=== PATIENT | female | born 1940 | race Caucasian/White ===

== ENCOUNTER → 2016-11-30 | Outpatient (CLI) | payer MEDICARE ==
[~2016-11-30] MED LIST: AMITRIPTYLINE H50 MG PO; ASPIRIN325 M2 PO; AUGMENTIN 875875 MG PO; BACTROBAN CREAM15 GM PO; BYETTA10 MCG/0.0 SC; CATAPRES0.3 MG PO; CITRACAL + D 311 TAB PO; CLARITIN10 MG PO; CLINDAMYCIN HC300 MG PO; CLONAZEPAM0.5 MG PO; CLONIDINE0.3 MG PO; COLACE100 MG PO; DIOVAN80 M1 PO; DUONEB 3 MG/3 ML3 M1 INH; GLUCOPHAGE500 MG PO; HYDROCODONE W/1 TA1 PO; IMDUR SA60 M1 PO; ISOSORBIDE MONO60 MG PO; ISOSORBIDE30 MG PO; JANUVIA100 MG PO; LABETALOL HCL300 MG PO; LASIX20 MG PO; LIPITOR20 MG PO; MEGACE 40400 MG/10 PO; METFORMIN1000 MG PO; METFORMIN500 MG PO; METOCLOPRAMIDE10 MG PO; METOPROLOL50 MG PO; MIRALAX POWDER17 G1 PO; MYCOLOG CREAM 115 GM PO; NITROGLYCERIN 0.3 MG/HR TD; NORVASC10 MG PO; NORVASC5 MG PO; ONDANSETRON4 M1 PO; PLAVIX75 MG PO; POTASSIUM CHLO10 ME4 PO; PRILOSEC20 M1 PO; PRILOSEC20 MG PO; PRINIVIL20 MG PO; PROTONIX40 MG PO; PULMICORT INH200 MCG INH; PULMICORT RESP0.5 MG INH; PULMICORT0.5 MG/2 M; RANEXA1000 MG PO; RANEXA500 MG PO; REGLAN10 MG PO; RESTORIL15 MG PO; RESTORIL30 MG PO; SYNTHROID,LEV100 MCG PO; VICOPROFEN 7.51 TA1 PO; VITAMIN B PO; VITAMIN B121000 MC2 IM; VITAMIN B121000 MC2 SL; XANAX0.25 MG PO; ZITHROMAX Z PA250 MG PO; ZOFRAN8 MG PO; ZOLOFT100 MG PO
== END | disposition home or self-care (01) ==
LOC: RAD 10:59
DX: M47.892 Other spondylosis, cervical region (principal); M54.9 Dorsalgia, unspecified

== ENCOUNTER → 2016-12-28 | Outpatient (CLI) | payer MEDICARE | END | disposition home or self-care (01) | LOC: RAD 11:09 | DX: M47.892 Other spondylosis, cervical region (principal) ==

== ENCOUNTER 2017-01-30 15:24 | Inpatient (IN) | payer MEDICARE ==
[~2017-01-30] VITALS: Ht 157.4 cm; Wt 70.4 kg
[2017-01-30 15:32] VITALS: BP 135/53
[2017-01-30 16:12] LABS: BASO % 0.5 % (0.0-1.0); EOS # 0.1 10*3/uL (0.0-0.4); EOS % 1.9 % (1.0-4.0); HEMATOCRIT 30.8 % (37.0-47.0); HEMOGLOBIN 9.6 g/dl (12.0-16.0); LYMPH # 1.4 10*3/uL (1.3-4.4); LYMPH % 18.6 % (27.0-41.0); MEAN CELL VOLUME 81.3 fl (81.0-99.0); MEAN CORPUSCULAR HGB 25.3 pg (27.0-31.0); MEAN CORPUSCULAR HGB CONC 31.2 g/dl (33.0-37.0); MEAN PLATELET VOLUME 10.3 fl (9.6-12.3); MONO # 0.8 10*3/uL (0.1-1.0); MONO % 11.2 % (3.0-9.0); NEUT % 67.5 % (47.0-73.0); PLATELET COUNT AUTOMATED 292 10*3/uL (130-400); RED BLOOD COUNT 3.79 10*6/uL (4.10-5.10); RED CELL DISTRI WIDTH 16.2 % (0-14.5); WHITE BLOOD COUNT 7.4 10*3/uL (4.8-10.8)
[2017-01-30 16:20] LABS: PROTHROMBIN TIME 10.7 SECONDS (9.0-12.4)
[2017-01-30 16:30] LABS: ALBUMIN 3.1 gm/dl (3.1-4.5); ALKALINE PHOSPHATASE 50 U/L (45-117); BILIRUBIN, TOTAL 0.4 mg/dl (0.2-1.0); BUN 28 mg/dl (7-24); C-REACTIVE PROTEIN 2.05 MG/DL (0-0.3); CARBON DIOXIDE 26 mmol/L (21-32); CHLORIDE 107 mmol/L (98-107); CKMB 1.5 ng/ml (0.5-3.6); CPK 77 U/L (26-192); EST GLOM FILT AFRICAN AMERICAN 47 ml/min; GLUCOSE 152 mg/dL (65-99); MAGNESIUM 1.1 mg/dL (1.5-2.1); POTASSIUM 3.7 mmol/L (3.5-5.1); SGOT/AST 13 IU/L (3-35); SGPT/ALT 15 U/L (12-78); SODIUM 144 mmol/L (136-145); TOTAL PROTEIN 6.5 gm/dL (6.4-8.2)
[2017-01-30 16:31] LABS: TROPONIN I < 0.015 ng/ml (<0.045)
[2017-01-30 16:36] LABS: BILIRUBIN NEGATIVE (NEGATIVE); BLOOD TRACE-INTACT (NEGATIVE); CLARITY SL CLOUDY (CLEAR); COLOR YELLOW (YELLOW); GLUCOSE NEGATIVE (NEGATIVE); KETONE TRACE (NEGATIVE); LEUKO ESTERASE 1+ (NEGATIVE); NITRITE NEGATIVE (NEGATIVE); PH 5.5 (5.0-9.0); PROTEIN TRACE (NEGATIVE); SPECIFIC GRAVITY 1.025 (1.005-1.030); UROBILINOGEN 0.2 E.U./dl (0.2-1.0)
[2017-01-30 16:48] LABS: WBC 21-30 wbc/hpf (0-5)
[2017-01-30 16:49] LABS: BACTERIA 1+; URINE REFLEX COMMENT YES (NO)
[2017-01-30 18:09] LABS: LA>2 REFLEX 2 HR DRAW NOW
[2017-01-30 18:54] VITALS: BP 191/63
[2017-01-30] MEDS ORDERED: HYDROCHLOROTH12.5 M2 PO (18:54)
[2017-01-30] MEDS ORDERED: PRILOSEC20 M1 PO (18:55)
[2017-01-30 20:00] VITALS: BP 144/60
[2017-01-31] VITALS (7 sets, daily range): BP systolic 142–217; BP diastolic 53–74
[2017-01-31 06:15] LABS: BASO % 0.5 % (0.0-1.0); EOS # 0.1 10*3/uL (0.0-0.4); EOS % 1.7 % (1.0-4.0); HEMATOCRIT 29.9 % (37.0-47.0); HEMOGLOBIN 9.5 g/dl (12.0-16.0); LYMPH % 12.9 % (27.0-41.0); MEAN CELL VOLUME 79.9 fl (81.0-99.0); MEAN CORPUSCULAR HGB 25.4 pg (27.0-31.0); MEAN CORPUSCULAR HGB CONC 31.8 g/dl (33.0-37.0); MEAN PLATELET VOLUME 9.8 fl (9.6-12.3); MONO # 0.9 10*3/uL (0.1-1.0); MONO % 10.9 % (3.0-9.0); NEUT # 5.8 10*3/uL (2.3-7.9); NEUT % 73.6 % (47.0-73.0); PLATELET COUNT AUTOMATED 281 10*3/uL (130-400); RED BLOOD COUNT 3.74 10*6/uL (4.10-5.10); RED CELL DISTRI WIDTH 16.1 % (0-14.5); WHITE BLOOD COUNT 7.8 10*3/uL (4.8-10.8)
[2017-01-31 06:42] LABS: BUN 20 mg/dl (7-24); CARBON DIOXIDE 28 mmol/L (21-32); CHLORIDE 105 mmol/L (98-107); EST GLOM FILT AFRICAN AMERICAN > 60 ml/min; GLUCOSE 148 mg/dL (65-99); POTASSIUM 3.4 mmol/L (3.5-5.1); SODIUM 141 mmol/L (136-145)
[2017-02-01 08:00] VITALS: BP 190/62
[2017-02-01 12:00] VITALS: BP 138/52
[2017-02-01 16:00] VITALS: BP 163/53
[2017-02-01 20:00] VITALS: BP 176/70
[2017-02-02] VITALS: BP 172/60
[2017-02-02] MEDS ORDERED: CIPRO500 MG PO (06:42)
[2017-02-02] MEDS ORDERED: MAGNESIUM OXID400 MG PO (06:42)
[2017-02-02 07:29] LABS: BASO % 0.7 % (0.0-1.0); EOS # 0.2 10*3/uL (0.0-0.4); EOS % 3.8 % (1.0-4.0); HEMATOCRIT 29.3 % (37.0-47.0); HEMOGLOBIN 9.1 g/dl (12.0-16.0); LYMPH # 1.4 10*3/uL (1.3-4.4); LYMPH % 23.3 % (27.0-41.0); MEAN CELL VOLUME 80.7 fl (81.0-99.0); MEAN CORPUSCULAR HGB 25.1 pg (27.0-31.0); MEAN CORPUSCULAR HGB CONC 31.1 g/dl (33.0-37.0); MEAN PLATELET VOLUME 10.3 fl (9.6-12.3); MONO # 0.9 10*3/uL (0.1-1.0); MONO % 14.9 % (3.0-9.0); NEUT # 3.3 10*3/uL (2.3-7.9); NEUT % 56.8 % (47.0-73.0); PLATELET COUNT AUTOMATED 278 10*3/uL (130-400); RED BLOOD COUNT 3.63 10*6/uL (4.10-5.10); RED CELL DISTRI WIDTH 16.1 % (0-14.5); WHITE BLOOD COUNT 5.8 10*3/uL (4.8-10.8)
[2017-02-02 07:39] LABS: BUN 15 mg/dl (7-24); CARBON DIOXIDE 25 mmol/L (21-32); CHLORIDE 109 mmol/L (98-107); EST GLOM FILT AFRICAN AMERICAN > 60 ml/min; GLUCOSE 141 mg/dL (65-99); POTASSIUM 3.3 mmol/L (3.5-5.1); SODIUM 142 mmol/L (136-145)
== END 2017-02-02 10:19 | disposition home health service (06) | DRG 689 ==
LOC: ED 15:24 → EDHOLD 17:41 → 4E 17:41
PROVIDERS: Emergency Medicine; Internal Medicine
DX: N39.0 Urinary tract infection, site not specified (principal); N17.0 Acute kidney failure with tubular necrosis; R62.7 Adult failure to thrive; R55 Syncope and collapse; Z88.1 Allergy status to other antibiotic agents; Z88.8 Allergy status to other drugs, medicaments and biological substances; R31.9 Hematuria, unspecified; I10 Essential (primary) hypertension; R29.6 Repeated falls; B96.4 Proteus (mirabilis) (morganii) as the cause of diseases classified elsewhere; Z66 Do not resuscitate; E83.42 Hypomagnesemia

== ENCOUNTER 2017-04-23 06:16 | Inpatient (IN) | payer MEDICARE ==
[~2017-04-23] VITALS: Ht 157.4 cm; Wt 67.2 kg
[2017-04-23] VITALS (9 sets, daily range): BP systolic 140–224; BP diastolic 55–156
--- NOTE | ~2017-04-23 | DS ---
[place], [place] DISCHARGE SUMMARY NAME: NINA FOFANA [facility] #: [id number] UNIT #: [id number] ROOM: 532 DOCTOR: AILYN DOMÍNGUEZ MD BIRTHDATE: [birth year] DOS: 04/25/2017 HOSPITAL COURSE: The patient is 77-year-old. The patient is very well known to us, comes in after a fall at home and developed back pain. Please refer H and P for further details. After admission, she was placed on IV fluids for acute kidney injury. This was most likely medication related, metformin and Vicoprofen were discontinued. The patient was started on Hematite for pain control. An MRI of the lumbar and thoracic spine was ordered, I do not have the result of that in dictation. The patient was given IV antibiotics. Urine culture showed heavy Gram-negative bacteria, no complete identification is available. The patient's back pain is much better with the appropriate pain medications. Blood pressure is under well controlled. Also, the hydrochlorothiazide and potassium has been discontinued as well as the metformin and Vicoprofen were discontinued because of the kidney failure. The patient has agreed to go to rehab center at this time. Social service and PT/OT has been consulted and the plan is to discharge her to rehab tomorrow morning. DISCHARGE MEDICATIONS: Will be Ceftin 250 twice daily for 5 days, Hematite t.i.d., Plavix 75 daily, lisinopril 20 daily, levothyroxine 100 mcg daily, aspirin 325 daily, Prilosec 20 daily, Lyrica 100 b.i.d., meclizine 25 three times a day p.r.n. for dizziness, labetalol 200 b.i.d. The stopped medications are potassium, Vicoprofen, metformin and hydrochlorothiazide. Blood sugars to be checked twice daily and coverage scale will be started and please place the patient on Prandin 1 mg t.i.d. for diabetic controlled. AILYN DOMÍNGUEZ MD CM:DISCHARG [phone] AILYN DOMÍNGUEZ MD 04/25/17 1139 interface
--- NOTE | ~2017-04-23 | PR ---
[place], [place] PROGRESS NOTE NAME: NINA FOFANA UNIT #: [id number] ROOM: 532 DOCTOR: AILYN DOMÍNGUEZ MD BIRTHDATE: [birth year] DOS: 04/24/2017 SUBJECTIVE: The patient complains of a lot of back pain. She seems quite uncomfortable in bed and seems to try to get up, sit in the chair and then go back to sleep. OBJECTIVE: VITAL SIGNS: Graphic trend shows pressure 139/51, pulse of 75, respirations 18, temperature 97.5. LUNGS: Clear. HEART: Regular. ABDOMEN: Obese, soft. EXTREMITIES: Without any edema. BACK: There is no clearcut point tenderness on her back; however, lumbar and thoracic spine is tender all over. There are no x-rays available. LABORATORY DATA: White cell count is normal at 6.9, hemoglobin 8.9, hematocrit 27.9, platelets 230. BMP: Glucose 84, BUN 26, creatinine 1.02. Electrolytes were normal. Urine culture shows heavy gram-negative bacteria, no identification is available. ASSESSMENT AND PLAN: 1. Patient with fall with acute back pain, rule out compression fracture. MRI of the thoracic and lumbar spine will be ordered. 2. Urinary tract infection with positive urine culture. Levaquin has been added. 3. Benign hypertension, controlled, with hypertensive nephrosclerosis and elevated creatinine, kidney functions on admission GFR 32; it was 52 this morning after IV fluids were given. 4. Adult failure to thrive. PT/OT and social service consult for placement obtained. [place], [place] PROGRESS NOTE NAME: NINA FOFANA UNIT #: [id number] ROOM: 532 DOCTOR: AILYN DOMÍNGUEZ MD BIRTHDATE: [birth year] AILYN DOMÍNGUEZ MD CM:PNTRANS [phone] AILYN DOMÍNGUEZ MD 04/24/172358 interface
--- NOTE | ~2017-04-23 | WRIGHTHP ---
[place], [place] PATIENT HISTORY AND PHYSICAL EXAM NAME: NINA FOFANA [facility] #: [id number] UNIT #: [id number] ROOM: 532 DOCTOR: AILYN DOMÍNGUEZ MD BIRTHDATE: [birth year] DOS: 04/23/2017 HISTORY OF PRESENT ILLNESS: The patient is 77 years, known to me from previous admissions, was brought into the Emergency Room during the night after a fall at home. She developed severe back pain. She was given multiple meds in the ER to control her back pain, but that made quite somnolent and lethargic and so she was admitted to the hospital. At the time of examination, the day of admission, the patient again was slightly obtunded and lethargic. Speech seems slow, mentation is slow. She is not able to tell me exactly the story of events preceding her admission here. The patient states that she has been seen by her PCP multiple times for back pain and she is on multiple medications. She denies having any chest pains, palpitations, does not have any fever or chills, does not have any abdominal pain, nausea, any emesis. PAST MEDICAL HISTORY: Significant for last hospitalization in January 2015 with UTI and adult failure to thrive. At that time, she refused to go to a [facility] home and at that time she was also taken off her Coumadin because she was not considered a good candidate for any anticoagulation. Past medical history is significant also for frequent falls, benign hypertension, hypertensive nephrosclerosis, type 2 diabetes mellitus, chronic low back pain. MEDICATIONS: She is currently on metformin, hydrochlorothiazide, Plavix, Vicoprofen, labetalol, levothyroxine, lisinopril, meclizine, metformin, omeprazole, potassium and Lyrica. SOCIAL HISTORY: Nonsmoker, does not use any alcohol. PHYSICAL EXAMINATION: GENERAL: She is very slow in responding to questions. VITAL SIGNS: Blood pressure is 139/50, pulse of 75, respirations 18, temperature 97.5. LUNGS: Diminished breath sounds. No wheezes, rales or rhonchi heard. HEART: Regular. ABDOMEN: Obese, soft, nontender. EXTREMITIES: Without any edema. BACK: Some diffuse tenderness over the back. ASSESSMENT AND PLAN: 1. The patient complains of back pain. The patient is ordered pain medications. A PT/OT consultation, Social service for possible placement for short term rehabilitation. 2. Urinary tract infection. Urine culture has been sent. IV antibiotics started. 3. Acute kidney injury, possibly from poor p.o. intake as well as urinary tract infection. IV fluids have been given. Hold off on nephrotoxic medications. [place], [place] PATIENT HISTORY AND PHYSICAL EXAM NAME: NINA FOFANA UNIT #: [id number] ROOM: [facility] DOCTOR: AILYN DOMÍNGUEZ MD BIRTHDATE: [birth year] AILYN DOMÍNGUEZ MD CM:HISPHYS:PATIENT HISTORY AND PHYSICAL EXAMINATION 11 38 AILYN DOMÍNGUEZ MD 04/24/172237 interface
--- NOTE | ~2017-04-23 | PR ---
[place], [place] PROGRESS NOTE NAME: NINA FOFANA UNIT #: [id number] ROOM: 532 DOCTOR: AILYN DOMÍNGUEZ MD BIRTHDATE: [birth year] DOS: SUBJECTIVE: The patient states that her pain is much under control. She does not have any chest pains or palpitations. OBJECTIVE: VITAL SIGNS: Blood pressure is 153/60, pulse of 57, respirations 18, temperature 97.5. LUNGS: Diminished breath sounds, clear. HEART: Regular. ABDOMEN: Obese, soft. EXTREMITIES: Without any edema. LABORATORY DATA: Urine culture shows ____ gram-negative bacteria. No identification is available yet. No labs available this morning. ASSESSMENT AND PLAN: 1. Fall with acute back pain. The patient is on [place] now and the pain is under control. 2. Adult failure to thrive. The patient to go to rehab center. 3. Urinary tract infection with gram-negative. No identification is available yet. Continue IV Rocephin. 4. Acute kidney injury, possibly from medications. Nephrotoxic meds have been discontinued. Slow IV hydration was given. Awaiting an MRI today. Should be able to discontinue IV fluids and discharge her to retirement in the morning as she has agreed to go to rehab. AILYN DOMÍNGUEZ MD CM:PNTRANS [phone] AILYN DOMÍNGUEZ MD 04/25/17 1216 interface
[~2017-04-23 06:16] MED LIST changes: +CIPRO500 MG PO; +HYDROCHLOROTH12.5 M2 PO; +MAGNESIUM OXID400 MG PO
[2017-04-23 06:44] LABS: BASO # 0.1 10*3/uL (0.0-0.1); BASO % 0.8 % (0.0-1.0); EOS # 0.2 10*3/uL (0.0-0.4); HEMATOCRIT 33.8 % (37.0-47.0); HEMOGLOBIN 10.6 g/dl (12.0-16.0); LYMPH # 1.8 10*3/uL (1.3-4.4); LYMPH % 23.9 % (27.0-41.0); MEAN CELL VOLUME 80.3 fl (81.0-99.0); MEAN CORPUSCULAR HGB 25.2 pg (27.0-31.0); MEAN CORPUSCULAR HGB CONC 31.4 g/dl (33.0-37.0); MEAN PLATELET VOLUME 9.7 fl (9.6-12.3); MONO # 0.8 10*3/uL (0.1-1.0); MONO % 10.4 % (3.0-9.0); NEUT # 4.8 10*3/uL (2.3-7.9); NEUT % 61.5 % (47.0-73.0); PLATELET COUNT AUTOMATED 334 10*3/uL (130-400); RED BLOOD COUNT 4.21 10*6/uL (4.10-5.10); RED CELL DISTRI WIDTH 15.9 % (0-14.5); WHITE BLOOD COUNT 7.7 10*3/uL (4.8-10.8)
[2017-04-23 06:55] LABS: ACT PARTIAL THROMBO TIME 22.4 SECONDS (20.8-31.5)
[2017-04-23 06:59] LABS: ALBUMIN 3.5 gm/dl (3.1-4.5); CREATININE 1.58 mg/dL (0.55-1.02); MAGNESIUM 1.4 mg/dL (1.5-2.1); POTASSIUM 3.6 mmol/L (3.5-5.1); TOTAL PROTEIN 7.1 gm/dL (6.4-8.2); TROPONIN I 0.034 ng/ml (<0.045)
--- NOTE | 2017-04-23 07:03 | NUR ---
2.5 MG OF LOPRESSOR GIVEN PER DR. MARTEL ORDER. 15 MINS LATER REMAINING 2.5 MG TO BE GIVEN. ONCOMING RN MADE AWARE OF THIS. PT HAS HAD SOME RELIEF FROM BACK PAIN. PT STILL HYPERTENSIVE.
--- NOTE | 2017-04-23 07:05 | NUR ---
RECEIVED PATIENT REPORT FROM TORIN. PATIENT CURRENTLY LAYING IN BED AT THIS TIME. PATIENT READJUSTED IN THE BED AT THIS TIME. PATIENT RESTING PEACEFULLY. APPEARS IN NO DISTRESS. WILL CONTINUE TO MONITOR.
--- NOTE | 2017-04-23 07:05 | NUR ---
PATIENT HAS 22G IV ACCESS NOTED IN THE LEFT HAND AT THIS TIME BY THIS NURSE. IV START HAS BEEN DOCUMENTED BY THIS NURSE. NURSE UNKNOWN FOR IV START AT THIS TIME.
--- NOTE | 2017-04-23 07:15 | NUR ---
DR MACDONALD NOTIFIED OF PATIENTS BLOOD PRESSURE MANUALLY 152/78. DR MACDONALD STATES TO STILL GIVE REMAINING 2.5MG OF LORPESSOR AT THIS TIME.
--- NOTE | 2017-04-23 08:30 | NUR ---
REPORT GIVEN TO TONY ADORNO ON 5TH FLOOR AT THIS TIME. PATIENT TRANSPORTED BY THIS NURSE TO 5TH FLOOR.
--- NOTE | 2017-04-23 08:40 | NUR ---
UPON ENTERING PATIENT ROOM FOR TRANSPORT TO THE 5TH FLOOR. PATIENT VERBALIZES TO THIS NURSE THAT SHE THINKS SHE IS SLURRING HER SPEECH. THIS NURSE NOTES A DECREASE IN SPEECH AT THIS TIME. DR MACDONALD NOTIFIED. TONY ADORNO ON 5TH FLOOR NOTIFIED WELL.
--- NOTE | 2017-04-23 08:55 | NUR ---
Time: 854 A 77 year old FEMALE admitted to 5E under services of AILYN RAMÍREZ MD. Pt. arrived via stretcher from ER. Chief complaint: INTRACTABLE BACK PAIN UNABLE TO AMBULATE. TONY CAT
[2017-04-23] MEDS ORDERED: LYRICA100 M1 PO (10:10)
[2017-04-23] MEDS ORDERED: MEDI-MECLIZINE25 MG PO (10:11)
[2017-04-23] MEDS ORDERED: LABETALOL HCL200 MG PO (10:12)
[2017-04-23 10:14] LABS: BILIRUBIN NEGATIVE (NEGATIVE); BLOOD TRACE-LYSED (NEGATIVE); CLARITY SL CLOUDY (CLEAR); COLOR YELLOW (YELLOW); GLUCOSE NEGATIVE (NEGATIVE); KETONE NEGATIVE (NEGATIVE); LEUKO ESTERASE 1+ (NEGATIVE); NITRITE NEGATIVE (NEGATIVE); PH 5.5 (5.0-9.0); UROBILINOGEN 0.2 E.U./dl (0.2-1.0)
--- NOTE | 2017-04-23 10:18 | NUR ---
DR DOMÍNGUEZ AWARE OF MED CHANGES IN MED REC BUT ADVISED TO LEAVE HER ORDERS ALONE SINCE PATIENTS BP IS TOO HIGH
--- NOTE | 2017-04-23 10:24 | NUR ---
DIDN'T GIVEN ASPIRIN 325. ALREADY GIVEN IN ER THIS MORNING
[2017-04-23 10:28] LABS: BACTERIA 3+; WBC TNTC wbc/hpf (0-5)
--- NOTE | 2017-04-23 21:05 | NUR ---
PT REQUESTED PAIN MEDCATION. PT RATED PAIN 8 OUT OF 10. PER PT, PAIN IS LOCATED IN THE UPPER BACK AREA BETWEEN THE SHOULDER BLADES AND DESCRIBES THE PAIN SHARP AND INTERMITTENT. NORCO WAS GIVEN.
--- NOTE | 2017-04-23 22:00 | NUR ---
NORCO WAS EFFECTIVE FOR PAIN. PT RATES PAIN AT 0 OUT OF 10.
[2017-04-24] VITALS: BP 138/50
[2017-04-24 06:15] LABS: BASO % 0.6 % (0.0-1.0); EOS # 0.2 10*3/uL (0.0-0.4); EOS % 2.8 % (1.0-4.0); HEMATOCRIT 27.9 % (37.0-47.0); HEMOGLOBIN 8.9 g/dl (12.0-16.0); LYMPH # 1.5 10*3/uL (1.3-4.4); LYMPH % 21.8 % (27.0-41.0); MEAN CELL VOLUME 81.1 fl (81.0-99.0); MEAN CORPUSCULAR HGB 25.9 pg (27.0-31.0); MEAN CORPUSCULAR HGB CONC 31.9 g/dl (33.0-37.0); MEAN PLATELET VOLUME 10.2 fl (9.6-12.3); MONO # 0.8 10*3/uL (0.1-1.0); MONO % 10.9 % (3.0-9.0); NEUT # 4.4 10*3/uL (2.3-7.9); NEUT % 63.5 % (47.0-73.0); PLATELET COUNT AUTOMATED 230 10*3/uL (130-400); RED BLOOD COUNT 3.44 10*6/uL (4.10-5.10); RED CELL DISTRI WIDTH 15.9 % (0-14.5); WHITE BLOOD COUNT 6.9 10*3/uL (4.8-10.8)
[2017-04-24 07:02] LABS: BUN 26 mg/dl (7-24); CHLORIDE 111 mmol/L (98-107); CREATININE 1.02 mg/dL (0.55-1.02); POTASSIUM 3.8 mmol/L (3.5-5.1); SODIUM 143 mmol/L (136-145)
--- NOTE | 2017-04-24 07:57 | NUR ---
Patient has [facility] and if discharged to home will need a resume home health order prior to discharge.
[2017-04-24 08:00] VITALS: BP 138/52
--- NOTE | 2017-04-24 08:30 | NUR ---
Railroad Cook in to talk to patient. Patient states lives at HOME with NOONE. There are [address] in the home. Physician: DR MCLAUGHLIN Pharmacy: [facility] Home health services: [facility] NURSE Patient's level of ADLs: MINIMAL ASSIST Patient has working utilities: YES DME: [facility] Follow-up physician's appointment after d/c: PREFERS TO MAKE HER OWN APPT Does patient want to access PORTAL?: Discharge plan . [facility] SNF STAY DISCUSSED. AGREES TO REFERRAL TO [facility]-NOT REHAB SUITES- SHE HAS BEEN TO [facility] IN THE PAST. WILL NEED 3 NIGHT STAY.
--- NOTE | 2017-04-24 13:12 | NUR ---
Patient referred to [facility], will require three night stay if accepted.
[2017-04-24 16:00] VITALS: BP 139/51
--- NOTE | 2017-04-24 16:12 | NUR ---
PHYSICAL THERAPY Physical Therapy Evaluation completed this date. See eval document for complete details. Will begin PT intervention to address the impairments of muscle weakness, decreased functional mobility I, and difficulty ambulating. Recommend SNF on d/c[place] [address] based on chart review and PT eval. Rosy Dwyer, PT
--- NOTE | 2017-04-24 17:51 | NUR ---
PT REQUESTED AND WAS MEDICATED WITH VICODIN FOR C/O BACK PAIN.
--- NOTE | 2017-04-24 20:00 | NUR ---
PT AWAKE IN BED, WATCHING TV. LUNGS DIMINISHED NO WHEEZES OR RHONCHI NOTED. EDEMA OF BILAT FEET NOTED. NO PAIN AT PRESENT TIME.
[2017-04-24 20:15] VITALS: BP 124/54
[2017-04-25] VITALS: BP 127/38
[2017-04-25 04:00] VITALS: BP 112/51
[2017-04-25 08:00] VITALS: BP 153/60
--- NOTE | 2017-04-25 08:18 | NUR ---
Patient referred to [facility], waiting on acceptance
--- NOTE | 2017-04-25 08:49 | NUR ---
PT DOWN FOR MRI AT THIS TIME.
[2017-04-25] MEDS ORDERED: NORCO 5-325 TA1 EACH PO (08:51)
[2017-04-25] MEDS ORDERED: CEFUROXIME AXE250 MG PO (08:51)
[2017-04-25] MEDS ORDERED: PRANDIN1 MG PO (08:54)
--- NOTE | 2017-04-25 10:29 | NUR ---
PHYSICAL THERAPY Patient just returned from having an MRI. Patient says she is too tired at this time for therapy. She wants therapy to come back this PM. CHRISTY RAHMAN PTA
--- NOTE | 2017-04-25 10:30 | NUR ---
PT BACK FROM MRI AT THIS TIME.
--- NOTE | 2017-04-25 10:48 | NUR ---
MEDICATED WITH NORCO PER PRN ORDER FOR C/O 10/29 BACK PAIN. WILL MONITOR FOR EFFECTIVENESS.
--- NOTE | 2017-04-25 11:14 | NUR ---
Faxed PT eval and updated notes to [facility]. Waiting on acceptance.
--- NOTE | 2017-04-25 12:15 | NUR ---
PT RESTING IN BED MORE COMFORTABLE. NORCO EFFECTIVE. CALL LIGHT WITHIN REACH. IVF INFUSING PER ORDER.
--- NOTE | 2017-04-25 12:56 | NUR ---
PHYSICAL THERAPY Patient wants therapy to come back in the afternoon. Will check back after lunch. 10:28 AM Jesus Velasquez PTA 12:57 PM ----- Checked back with patient and patient was eating lunch. Will check back later. Jesus Velasquez BRANCH SERVICE ASSOCIATE
--- NOTE | 2017-04-25 13:04 | NUR ---
Hospital exemption completed online in [facility] system. Still waiting on acceptance from [facility]
--- NOTE | 2017-04-25 13:30 | NUR ---
Patient has been accepted to [facility] and can go on Saturday04/26/17
--- NOTE | 2017-04-25 13:37 | NUR ---
PHYSICAL THERAPY Patient presented to therapy in supine with report of being medicated and having no LBP. Patient agrees to therapy. Patient performed supine to sitting at EOB and sit to stand transfer with Supervision. Patient performed gait with W/W 50' x 1 with CGA X 1. Patient transferred back to supine in bed with Supervision. Patient was left in supine with call light within reach. Patient was 1:1 with this INBOUND SALES CONSULTANT for 20 minutes total. Jessu Velasquez INBOUND SALES CONSULTANT
[2017-04-25 16:00] VITALS: BP 134/62
[2017-04-25 20:00] VITALS: BP 144/46; BP 144/52
--- NOTE | 2017-04-25 20:30 | NUR ---
RESTING IN BED WITH NO ACUTE DISTRESS NOTED. RESPIRATIONS EASY. LUNGS DIMINISHED, CLEAR. PULSE OX 98% RA. K-PAD IN USE TO BACK. OFFERED AND EDUCATED REGARDING TEDS, DECLINED STATING "I HATE THEM THINGS." IV FLUIDS INFUSING PER ORDER. CALL LIGHT WITHIN REACH
--- NOTE | 2017-04-25 21:01 | NUR ---
REQUESTED AND RECEIVED NORCO PER PRN ORDER FOR COMPLAINTS OF BACK PAIN RATING AN 8. CALL LIGHT WITHIN REACH. WILL MONITOR FOR EFFECTIVENESS
--- NOTE | 2017-04-25 23:00 | NUR ---
EARLIER MEDS APPEAR EFFECTIVE. RESTING WITH EYES CLOSED. RESPIRATIONS EASY. IV FLUIDS MAINTAINED.
[2017-04-26] VITALS: BP 142/45
--- NOTE | 2017-04-26 | NUR ---
SLEEPING. NO DISTRESS NOTED. RESPIRATIONS EASY. VSS. IV FLUIDS MAINTAINED PER ORDER. CALL LIGHT WITHIN REACH. BED ALARM MAINTAINED FOR SAFETY
--- NOTE | 2017-04-26 06:00 | NUR ---
slept throughout night with no distress noted. respirations easy. iv fluids maintained. call light within reach. bed alarm maintained for safety
--- NOTE | 2017-04-26 06:25 | NUR ---
requested and received norco per prn order for complaints of back pain rating a 6. call light within reach. will monitor for effectiveness
[2017-04-26 08:00] VITALS: BP 150/68
--- NOTE | 2017-04-26 09:00 | NUR ---
PT RESTING IN BED, NO DISTRESS NOTED. PT STATING SHE DOESN'T KNOW WHY SHE HAS TO GO THE SNF. EXPLAINED TO PT THAT IT'S NOT SAFE FOR HER TO GO HOME, THAT SHE HAS BEEN FALLING FREQUENTLY, PT AGREED. PT DENIES ANY COMPLAINTS AT THIS TIME.
--- NOTE | 2017-04-26 12:04 | NUR ---
PHYSICAL THERAPY Kristi seen this AM X 2, first time in she said no jame going home, going to be D/C. I stopped back again and Kritsi needing to use the bathroom. All transfers were CGA X 1, up on wheeled walker and Pt had IV Pole. Gait 17' into Pt's bathroom with W/W and MIN ASSISTANT BRANCH MANAGER X 1, little cueing for safety. Followed by gait back to bed no LOB, Pt with call light and phone and said that she is going home. COLIN RICHARDSON HOUSE BUILDER.
--- NOTE | 2017-04-26 13:44 | NUR ---
NURSE TO NURSE REPORT GIVEN TO NIKOLAY AT [facility].
--- NOTE | 2017-04-26 13:47 | NUR ---
Discharge instructions reviewed with patient/family. Patient receptive and verbalizes understanding. Follow-up care arranged. Written instructions given to patient/family. Pt transported to lobby via wheelchair. NAVIN BRAVO
--- NOTE | 2017-04-26 15:22 | NUR ---
PHYSICAL THERAPY CO-SIGN I approve of the Phyical Therapy notes written above. EDMOND BEASLEY PT
[2017-04-26] MEDS ORDERED: CEFUROXIME AXE250 MG PO (22:55)
== END 2017-04-26 13:47 | disposition other institution (70) | DRG 683 ==
LOC: ED 06:16 → EDHOLD 08:04 → 5E 08:04
PROVIDERS: Emergency Medicine Emergency Medical Services; ADMIT Internal Medicine
DX: N17.9 Acute kidney failure, unspecified (principal); N39.0 Urinary tract infection, site not specified; E11.22 Type 2 diabetes mellitus with diabetic chronic kidney disease; G89.29 Other chronic pain; R62.7 Adult failure to thrive; R29.6 Repeated falls; I12.9 Hypertensive chronic kidney disease with stage 1 through stage 4 chronic kidney disease, or unspecified chronic kidney disease; N18.9 Chronic kidney disease, unspecified; B96.89 Other specified bacterial agents as the cause of diseases classified elsewhere; M54.5 Low back pain; E66.9 Obesity, unspecified; Z66 Do not resuscitate; W18.39XA Other fall on same level, initial encounter; Z51.5 Encounter for palliative care; Z68.27 Body mass index [BMI] 27.0-27.9, adult; Z87.440 Personal history of urinary (tract) infections; Z82.49 Family history of ischemic heart disease and other diseases of the circulatory system; Z80.8 Family history of malignant neoplasm of other organs or systems; Z98.41 Cataract extraction status, right eye; Z90.710 Acquired absence of both cervix and uterus; Z79.82 Long term (current) use of aspirin; Z79.899 Other long term (current) drug therapy; Z88.8 Allergy status to other drugs, medicaments and biological substances; Y93.89 Activity, other specified; Y92.89 Other specified places as the place of occurrence of the external cause; Y99.8 Other external cause status

== ENCOUNTER 2017-04-30 22:37 | Inpatient (IN) | payer MEDICARE ==
[~2017-04-30] VITALS: Ht 157.4 cm; Wt 72.7 kg
--- NOTE | ~2017-04-30 | PR ---
[place], [place] PROGRESS NOTE [id number] #: [id number] ROOM: 518 DOCTOR: TAMY MCLAUGHLIN MD BIRTHDATE: [birth year] DOS: SUBJECTIVE: The patient is feeling much better today, although she is not enjoying drinking the bowel prep. VITAL SIGNS: Blood pressure 129/47, heart rate 60 beats per minute, breathing 20 times per minute and temperature 98.6 degrees Fahrenheit. GENERAL APPEARANCE: The patient is alert and oriented x 3, in no visible distress. Obesity and generalized weakness. HEENT AND NECK: Exam within normal limits. CARDIOVASCULAR SYSTEM: Heart rate is regular in rate and rhythm. S1 and S2 normally audible. LUNGS: Clear to auscultation. ABDOMEN: Soft, nontender. No obvious organomegaly. Bowel sounds are present. EXTREMITIES: Without significant cyanosis or edema. IMPRESSION: 1. The patient with acute diastolic type congestive heart failure, improved with diuresis. The patient was given IV Lasix and is being followed by Cardiology. 2. The patient's recent GI bleed and Hemoccult stool positive along with anemia with a hemoglobin of 7.9, which continues to drop. The patient is going for endoscopy by Dr. Toth tomorrow and is undergoing bowel prep. 3. Benign essential hypertension with controlled blood pressures with treatment. 4. Exacerbation of chronic obstructive pulmonary disease, which is being treated with cefuroxime. 5. Hypothyroidism, treated with thyroid supplements. TAMY MCLAUGHLIN MD CM:PNTRANS [phone] TAMY MCLAUGHLIN MD 05/02/172158 interface
--- NOTE | ~2017-04-30 | WRIGHTHP ---
[place], [place] PATIENT HISTORY AND PHYSICAL EXAM NAME: NINA FOFANA [facility] #: [id number] UNIT #: [id number] ROOM: 518 DOCTOR: TAMY MCLAUGHLIN MD BIRTHDATE: [birth year] DOS: 05/01/2017 HISTORY OF PRESENT ILLNESS: The patient is a 77-year-old female with a past medical history of: 1. Obesity. 2. Recurrent falls and failure to thrive. 3. Benign essential hypertension. 4. Type 2 diabetes mellitus. 5. Chronic nausea and diabetic gastroparesis. 6. COPD. 7. LVH. 8. Diastolic type chronic CHF. 9. Chronic lower back pains. 10. Remote history of pyloric stenosis, status post ballooning procedure by Dr. Toth. The patient was sent over from care home with increasing shortness of breath for a couple of days. The patient was found to be in congestive heart failure in the ER with mild pulmonary vascular congestion and small bilateral effusions, proBNP of 4000, hemoglobin 8.9. The patient recommended for admission and further management. After admission, the patient is wearing oxygen and is feeling somewhat better. REVIEW OF SYSTEMS: CARDIOVASCULAR: No chest pain. No palpitations. GASTROINTESTINAL: No nausea, vomiting, diarrhea or constipation. LUNGS: Increasing shortness of breath. No wheezing. FAMILY HISTORY: Noncontributory. HOME MEDICATIONS: The patient takes aspirin. She was also on cefuroxime, Plavix, [place], labetalol, Synthroid, Prinivil, Lyrica, Prilosec. ALLERGIES: Known allergies to TYLENOL, TETRACYCLINE, LORATADINE. PHYSICAL EXAMINATION: GENERAL: The patient is alert and oriented x 3, moderately obese, in no visible distress, generalized weakness. HEENT AND NECK: Extraocular movements are intact. Sclerae are anicteric. Oral mucosa is moist and clean. No obvious facial weakness. Neck is supple without any lymphadenopathy. No thyromegaly. No JVD. No carotid arterial bruits. LUNGS: Decreased breath sounds, especially in the lower lungs. CARDIOVASCULAR SYSTEM: Heart rate is regular in rate and rhythm. S1 and S2 normally audible. No significant murmur or any other abnormal cardiac sounds. ABDOMEN: Soft, nontender. No obvious organomegaly. Bowel sounds are present. No obvious herniation. EXTREMITIES: Trace leg and pedal edema. Compression socks in place. CENTRAL NERVOUS SYSTEM: Alert and oriented x 3. Cranial nerves II-XII are intact. Speech is normal. The patient is able to move all extremities. Normal muscle strength. Deep tendon reflexes are equal on both sides. Plantars were [place], [place] PATIENT HISTORY AND PHYSICAL EXAM NAME: NINA FOFANA UNIT #: [id number] ROOM: 518 DOCTOR: TAMY MCLAUGHLIN MD BIRTHDATE: [birth year] downgoing. IMPRESSION: 1. The patient presenting with acute diastolic type congestive heart failure. Cardiology has been consulted and the patient is being diuresed with IV Lasix. The patient is starting to feel better. Her serum electrolytes will be monitored. 2. Hypothyroidism, for which I will continue her on thyroid supplements. 3. Recent gastrointestinal bleed. The patient is waiting for GI workup, so I will consult Dr. Toth. She was Hemoccult stools positive as well as anemia from blood loss. 4. Recent exacerbation of chronic obstructive pulmonary disease, being treated with cefuroxime, which is being continued. 5. Benign essential hypertension. Blood pressures are controlled with labetalol and lisinopril. TAMY MCLAUGHLIN MD CM:HISPHYS:PATIENT HISTORY AND PHYSICAL EXAMINATION 1111 [id number] TAMY MCLAUGHLIN MD 05/01/17 1303 interface
--- NOTE | ~2017-04-30 | PR ---
[place], [place] PROGRESS NOTE NAME: NINA FOFANA UNIT #: [id number] ROOM: 518 DOCTOR: LEANNA ACOSTA MD BIRTHDATE: [birth year] DOS: 05/03/2017 SUBJECTIVE: The patient has been breathing fine. She had no orthopnea or PND and when she walked, she realized her breathing had improved significantly. She has no swelling of the legs, has not had any palpitations, no cough. OBJECTIVE: GENERAL: She looks well, alert and oriented. She has oxygen on and is not tachypneic. VITAL SIGNS: Pulse is 66 and regular, blood pressure 167/76. Systolic blood pressure has been mildly elevated since admission. NECK: JVP is normal. AJR is negative. CARDIOVASCULAR: Auscultation revealed no murmurs or any other sounds. EXTREMITIES: There is no edema in the lower extremities. RESPIRATORY: Percussion ____ is normal. Auscultation reveals just a few bibasilar crackles. LABORATORY DATA: Chemistry profile is fine. Hemoglobin is 7.9 g/dL. IMPRESSION: 1. This patient has acute on chronic diastolic heart failure, which has come under good control now. 2. Severe anemia is probably contributing to cardiac decompensation to some extent. PLAN: She was not taking any furosemide at home and here IV 40 mg once a day has induced fair amount of diuresis with -3.5 liters fluid balance since admission. When she is discharged home, she should be on 40 mg of furosemide orally daily and some potassium supplement as well. I would like to see her in the office in the next 2 to 3 weeks. [place], [place] PROGRESS NOTE NAME: NINA FOFANA UNIT #: [id number] ROOM: 518 DOCTOR: LEANNA ACOSTA MD BIRTHDATE: [birth year] LEANNA ACOSTA MD CM:PNTRANS [phone] LEANNA ACOSTA MD 05/04/17 0615 interface
--- NOTE | ~2017-04-30 | O ---
[place], [place] OPERATIVE NOTE NAME: NINA FOFANA UNIT #: [id number] ROOM: 518 DOCTOR: SKYLAR LEON MD BIRTHDATE: [birth year] DOS: PROCEDURE #1 HISTORY OF PRESENT ILLNESS: The patient is a 77-year-old who presented with anemia. The patient has been on aspirin and Plavix. PAST MEDICAL HISTORY: Associated with COPD, congestive heart failure, history of hypertension, obesity, pyloric ring stenosis, diabetes mellitus. PAST SURGICAL HISTORY: Hysterectomy, cholecystectomy, triple bypass, CABG. SOCIAL HISTORY: Nonsmoker, nonalcohol consumer. FAMILY HISTORY: Noncontributory. ALLERGIES: TYLENOL, TETRACYCLINE AND LORATADINE. MEDICATIONS: List has been reviewed. She has been on aspirin and clopidogrel. On the other hand, she has been on omeprazole 20 mg daily. PROCEDURE: Today's procedure part of investigation is panendoscopy and colonoscopy. PREMEDICATION: Versed and Diprivan. SCOPE: Olympus forward-viewing gastroscope Q10 video. REPORT: After putting the patient in the left lateral position and after application of lubricant to the scope, the scope was introduced. Thereafter, under direct visualization, I advanced through the length of the esophagus without difficulty. Gastric pouch was entered. Large gastric erosions in the antrum of the stomach was identified, photographed, biopsy was obtained. Duodenal bulb, second and third part was within normal limit. The patient extubated, tolerated procedure well. IMPRESSION: Gastritis, gastric erosions, superficial ulceration. This could be aspirin-induced and bleeding could have been clopidogrel and aspirin in combination and as a result anemia. PLAN AND DISCUSSION: We will switch her from omeprazole to Protonix 40 mg daily. We will reassess when we will proceed with colonoscopy. PROCEDURE #2 HISTORY OF PRESENT ILLNESS: The patient has presented with chief complaint of anemia amongst her complaints. Her blood count has been followed up and latest hemoglobin has been 7.9 and hematocrit 25. PROCEDURE: Today's procedure part of investigation is colonoscopy. [place], [place] OPERATIVE NOTE NAME: NINA FOFANA UNIT #: [id number] ROOM: 518 DOCTOR: SKYLAR LEON MD BIRTHDATE: [birth year] PREMEDICATION: Versed and Diprivan. SCOPE: Olympus forward-viewing colonoscope 10L video. REPORT: After putting the patient in the left lateral position and after application of lubricant to the scope, the scope was introduced. Thereafter, under direct visualization, I advanced through the length of colon without difficulty, difficulty being tortuosity of the colon and laxity. Base of the cecum explored, appendiceal orifice identified, and ileocecal valve identified. Scope was gradually withdrawn from ascending, transverse, descending colon. The patient extubated, tolerated procedure well. IMPRESSION: Tortuous colon. Otherwise, no active source of bleeding. PLAN AND DISCUSSION: Retrospectively we have to consider upper GI tract as a source of GI bleed. The patient with a hematocrit of 25 with a history of cardiac stress requires another transfusion, regular diet, elevation, also have PPI to Protonix 40 mg daily, clinical reassessment. SKYLAR LEON MD CM:OPRECORD:OPERATIVE NOTE [id number] SKYLAR LEON MD 05/03/17 1419 interface
--- NOTE | ~2017-04-30 | PR ---
[place], [place] PROGRESS NOTE NAME: NINA FOFANA UNIT #: [id number] ROOM: 518 DOCTOR: AILYN DOMÍNGUEZ MD BIRTHDATE: [birth year] DOS: SUBJECTIVE: The patient is doing fine without any complaints. She is awaiting a colonoscopy today. OBJECTIVE: VITAL SIGNS: Graphic trend shows blood pressure 167/76, pulse of 67, respirations 18, temperature 97.8. LUNGS: Clear. HEART: Regular. ABDOMEN: Obese, soft, nontender. EXTREMITIES: Without any edema. ASSESSMENT AND PLAN: 1. Poorly controlled hypertension, improved. 2. Congestive heart failure, acute, diastolic. Repeat chest x-ray shows clearing of the fluid. 3. Heme-positive stools, awaiting GI workup. The plan is to [facility] her to a prison tomorrow. AILYN DOMÍNGUEZ MD CM:PNTRANS [id number] AILYN DOMÍNGUEZ MD 05/03/172131 interface
--- NOTE | ~2017-04-30 | CON ---
[place], [place] REPORT OF CONSULTATION NAME: NINA FOFANA UNIT #: [id number] ROOM: 518 DOCTOR: LEANNA ACOSTA MD BIRTHDATE: [birth year] DOS: 05/01/2017 HISTORY OF PRESENT ILLNESS: This is a 77-year-old -[place] woman with a history of coronary artery disease with 3-vessel CABG in 2008 and in 2011 she had a ____ heart cath, which demonstrated occluded vein graft to obtuse marginal branch and BERKOWITZ was patent that went to LAD and SVG to right coronary artery was also patent. LV systolic function was normal by LV gram and also by an echocardiogram done here. She has been diagnosed with diastolic heart failure previously and has type 2 diabetes mellitus, essential hypertension and chronic back pain. She had stated in a shelter where she was trying to recuperate and now had gone home. Yesterday off the supper time she became acutely short of breath, which was rather a bit of surprise for her. She had no cough, fever, chills, chest pain or palpitation at that time. She has not had any swelling of the lower extremities. She does not smoke nor does she drink alcoholic beverages. HOME MEDICATIONS: Include aspirin 325 daily, clopidogrel 75 mg daily, cefuroxime 250 mg b.i.d., levothyroxine 100 mcg daily, labetalol 200 mg b.i.d., lisinopril 20 mg daily, meclizine 25 mg t.i.d. p.r.n., omeprazole 20 mg daily and Lyrica 100 mg b.i.d. PHYSICAL EXAMINATION: GENERAL: The patient is pleasant, alert. She has oxygen on and is mildly tachypneic. No thyromegaly or finger clubbing is present. VITAL SIGNS: Pulses irregular at 66 beats per minute, blood pressure 139/48. NECK: JVP is normal. AJR appeared to be positive and there is no carotid bruit. HEART: There is no cardiomegaly. Murmurs were not present. There was no rub. EXTREMITIES: She had good pedal pulses and no pitting edema of the lower extremities. RESPIRATORY: She is mildly tachypneic. Percussion note is normal. Auscultation reveals mild reduced breath sounds with crackles in the lower zones. ABDOMEN: Supple, nontender, without any pulsatile mass, no bruit. LABORATORY DATA: An ECG showed normal sinus rhythm at 83 beats per minute, incomplete left bundle branch block, which she has had previously. Chest x-ray demonstrates small bilateral pleural effusions and mild pulmonary edema. LABORATORY DATA: Hemoglobin is 9.8 g per dL, MCV 82.6, glucose 252 mg/dL, BUN 27, creatinine 0.99 and estimated GFR of 54 mL per minute. Potassium 4.0, sodium 142 and NT-proBNP is 4137. Troponin less than is 0.041. IMPRESSION: This patient has mild heart failure predominantly manifesting as pulmonary edema, shortness of breath and diastolic heart failure is likely to be present. No underlying rhythm. Her blood pressure has not been high, so reason for acute exacerbation is not clear. Of course, underlying coronary artery disease may be playing a part as well. [place], [place] REPORT OF CONSULTATION NAME: NINA FOFANA UNIT #: [id number] ROOM: 518 DOCTOR: LEANNA ACOSTA MD BIRTHDATE: [birth year] RECOMMENDATIONS: You have already started on IV furosemide, which should be continued and she is diuresing very nicely with that. Other home medication should be continued as well. Potassium and renal function and magnesium should be monitored. LEANNA ACOSTA MD CM:CONSTR:REPORT OF CONSULTATION 1815 05/02/17 0253 interface
--- NOTE | ~2017-04-30 | DS ---
[place], [place] DISCHARGE SUMMARY NAME: [id number] UNIT #: [id number] ROOM: 518 DOCTOR: AILYN DOMÍNGUEZ MD BIRTHDATE: [birth year] DOS: 05/04/2017 DIAGNOSES: 1. Acute diastolic congestive heart failure. 2. Hypertension, poorly controlled. 3. Heme-positive stools with a GI workup showing gastric erosions, tortuous colon. 4. Adult failure to thrive. 5. Chronic back pain with lumbar disk disease and radiculopathy to see Dr. Charles as an outpatient. 6. Type 2 diabetes mellitus, non-insulin dependent. MEDICATIONS ON DISCHARGE: Protonix 40 mg daily, metformin 500 b.i.d., Lasix 40 daily, lisinopril 20 daily, levothyroxine 100 mcg daily, Lyrica 100 b.i.d., meclizine 25 t.i.d. p.r.n., labetalol 200 mg b.i.d., Plavix 75 daily, Granby 5/325 t.i.d. p.r.n. The aspirin is on hold. HOSPITAL COURSE: The patient is known to us. She was admitted to the hospital after being sent from the senior living with poorly controlled hypertension. The pressures were systolic in the 200s, diastolic about 120 at the time of admission to the ER. The patient was also in acute diastolic CHF from the poorly controlled hypertension. After admission, patient was diuresed, pressures are much better controlled. Heme-positive stool was noted as an outpatient, so GI workup was initiated. Dr. Toth was consulted. Gastric erosions were noted, most likely from the aspirin, which was discontinued. Colonoscopy just revealed tortuous colon. No other abnormalities were seen. The patient is overall stable and improved. Please check blood sugars daily. DIET: ADA 1800. AILYN DOMÍNGUEZ MD CM:DISCHJUAN DAVID [id number] AILYN DOMÍNGUEZ MD 05/04/17 1441 interface
--- NOTE | ~2017-04-30 | PR ---
[place], [place] PROGRESS NOTE NAME: [facility]FANA [id number] UNIT #: [id number] ROOM: 518 DOCTOR: AILYN DOMÍNGUEZ MD BIRTHDATE: [birth year] DOS: 05/04/2017 SUBJECTIVE: The patient is not having any new complaints. She underwent the endoscopy, colonoscopy. Colonoscopy showed tortuous colon. No abnormalities were seen. Endoscopy showed gastritis and gastric erosions. The patient is not having any complaints of chest pains or palpitations this morning. OBJECTIVE: VITAL SIGNS: Blood pressures are much better at 155/51, pulse of 70, respirations 20, temperature 98.3. LUNGS: Clear. HEART: Regular. ABDOMEN: Obese, soft, nontender. EXTREMITIES: Without any edema. ASSESSMENT AND PLAN: 1. Acute diastolic congestive heart failure, improved. 2. Hypertension, poorly controlled. Pressures are much better. 3. Heme positive stools with endoscopy showing gastric erosions, did receive 1 unit of blood transfusion yesterday for hemoglobin of 7.9. 4. Chronic obstructive pulmonary disease, stable. 5. Adult failure to thrive, to go to [facility] today. AILYN DOMÍNGUEZ MD CM:PNTRANS [id number] AILYN DOMÍNGUEZ MD 05/04/17 1623 interface
[~2017-04-30 22:37] MED LIST changes: +CEFUROXIME AXE250 MG PO; +LABETALOL HCL200 MG PO; +LYRICA100 M1 PO; +MEDI-MECLIZINE25 MG PO; +NORCO 5-325 TA1 EACH PO; +PRANDIN1 MG PO
[2017-04-30 22:53] VITALS: BP 172/88
[2017-04-30 23:02] LABS: BASO # 0.1 10*3/uL (0.0-0.1); BASO % 0.6 % (0.0-1.0); EOS # 0.3 10*3/uL (0.0-0.4); EOS % 2.6 % (1.0-4.0); HEMATOCRIT 28.5 % (37.0-47.0); HEMOGLOBIN 8.9 g/dl (12.0-16.0); LYMPH # 1.2 10*3/uL (1.3-4.4); LYMPH % 12.6 % (27.0-41.0); MEAN CELL VOLUME 82.6 fl (81.0-99.0); MEAN CORPUSCULAR HGB 25.8 pg (27.0-31.0); MEAN CORPUSCULAR HGB CONC 31.2 g/dl (33.0-37.0); MONO # 0.9 10*3/uL (0.1-1.0); MONO % 8.8 % (3.0-9.0); NEUT # 7.2 10*3/uL (2.3-7.9); PLATELET COUNT AUTOMATED 293 10*3/uL (130-400); RED BLOOD COUNT 3.45 10*6/uL (4.10-5.10); RED CELL DISTRI WIDTH 16.9 % (0-14.5); WHITE BLOOD COUNT 9.6 10*3/uL (4.8-10.8)
[2017-04-30 23:04] VITALS: BP 178/74
[2017-04-30 23:13] LABS: ACT PARTIAL THROMBO TIME 18.4 SECONDS (20.8-31.5)
[2017-04-30 23:18] LABS: BILIRUBIN NEGATIVE (NEGATIVE); BLOOD NEGATIVE (NEGATIVE); CLARITY CLEAR (CLEAR); COLOR YELLOW (YELLOW); GLUCOSE 1+ (NEGATIVE); KETONE NEGATIVE (NEGATIVE); LEUKO ESTERASE NEGATIVE (NEGATIVE); NITRITE NEGATIVE (NEGATIVE); SPECIFIC GRAVITY 1.025 (1.005-1.030); UROBILINOGEN 0.2 E.U./dl (0.2-1.0)
[2017-04-30 23:23] LABS: ALBUMIN 2.9 gm/dl (3.1-4.5); ALKALINE PHOSPHATASE 76 U/L (45-117); BUN 27 mg/dl (7-24); CHLORIDE 107 mmol/L (98-107); CREATININE 0.99 mg/dL (0.55-1.02); SGOT/AST 19 IU/L (3-35); SGPT/ALT 19 U/L (12-78); SODIUM 142 mmol/L (136-145); TOTAL PROTEIN 6.2 gm/dL (6.4-8.2)
[2017-04-30 23:24] LABS: TROPONIN I 0.041 ng/ml (<0.045)
[2017-04-30 23:27] VITALS: BP 158/64
[2017-04-30 23:33] LABS: BACTERIA TRACE; RBC 0-2 rbc/hpf (0-2)
--- NOTE | 2017-05-01 00:09 | NUR ---
SPOKE WITH ANGELINA NURSE AT [facility] WITH PATIENT UPDATE. PT SITTING UP IN BED WATCHING TV. REMAINS STABLE, NO DISTRESS NOTED. NO COMPLAINTS/NEEDS AT THIS TIME.
[2017-05-01 00:49] VITALS: BP 158/70
--- NOTE | 2017-05-01 00:56 | NUR ---
PT STABLE AND READY FOR TRANSPORT TO THE FLOOR. I CONTACTED ANGELINA FROM THE [facility] AND MADE HER AWARE OF PATIENT BEING ADMITTED.
--- NOTE | 2017-05-01 01:10 | NUR ---
PT. UP TO UNIT AT THIS TIME. PATIENT WALKED FROM CART TO BED WITH ASSISTANCE PT. AMBULATED WITHOUT PROBLEMS. PT. CURRENTLY DENIES SOB, CP, N/V/D. CALL LIGHT WITHIN REACH, BED IN LOWEST POSITION, WHEELS LOCKED. SEE ADM. ASSESSMENT.
[2017-05-01 01:18] VITALS: BP 152/82
[2017-05-01] MEDS ORDERED: PLAVIX75 M1 PO (01:26)
--- NOTE | 2017-05-01 01:36 | NUR ---
CALLED BRIDGETT AT [facility] AT THIS TIME REGARDING PATIENT'S CODE STATUS. PER [facility] PAPERWORK, PATIENT HAS A DNR-CC CODE STATUS. NO ACCOMPANYING LIVING WILL/DNR ORDER/POA PAPER SENT. PER ANGELINA AT [facility], PATIENT IS LISTED A FULL CODE. ANGELINA STATES THEY DO HAVE A LIVING WILL/POA DOCUMENT ON FILE, BUT PATIENT IS IN THEIR SYSTEM A FULL CODE. WENT TO PATIENT'S ROOM, DISCUSSED HER WISHES. PATIENT IS ALERT AND ORIENTED X3. PATIENT STATES SHE WANTS "EVERYTHING DONE UP UNTIL HER HEART STOPS." VERIFIED PATIENT'S DNR-ARREST CODE STATUS BY TWO RNs. TO BE NOTIFIED OF PATIENT'S REQUESTS.
--- NOTE | 2017-05-01 07:23 | NUR ---
EVENT SPECIALIST PRODUCT DEMONSTRATOR VS. PT CAME FROM SNF AT [facility] AND PLANS TO RETURN UPON DC. [facility]
[2017-05-01 08:00] VITALS: BP 162/60; BP 172/60
--- NOTE | 2017-05-01 09:07 | NUR ---
DR. REEVES'S OFFICE NOTIFIED OF CONSULT.
--- NOTE | 2017-05-01 11:20 | NUR ---
PHYSICAL THERAPY PAtient evaluated on 5, full evaluation to follow. Contionue with PT as per plan of care with fall, mod (A), new acute moderate thoracic pain complaints and acute debility precautions. Alarm intact on bed. PAtient will require return to SNF for impaired mobility in order to return to home, alone, at PLOF. PAtient is moderate complexity via chart review, tests and evaluation. Thank you for this referral. Alisia Hodge,PT
--- NOTE | 2017-05-01 11:35 | NUR ---
DR. MCCORMICK NOTIFIED OF DR. LEON CONSULT.
[2017-05-01 12:00] VITALS: BP 150/52
--- NOTE | 2017-05-01 14:03 | NUR ---
DR. MCLAUGHLIN NOTIFIED THAT PATIENT'S GASTROENTEROLOGY NURSE IS DR. ACOSTA. DR. ACOSTA CALLED AND HE SAID WOULD SEE PATIENT TODAY.
[2017-05-01 16:00] VITALS: BP 139/48
--- NOTE | 2017-05-01 19:40 | NUR ---
PT. AWAKE, ALERT AND ORIENTED X 3 AT THIS TIME. PT. DENIES CP, SOB, N/V/D AND PAIN AT THIS TIME. CALL LIGHT WITHIN REACH, BED IN LOWEST POSITION, WHEELS LOCKED. SEE SHIFT ASSESSMENT.
[2017-05-01 19:43] VITALS: BP 152/70; BP 161/51
--- NOTE | 2017-05-01 20:56 | NUR ---
SPOKE WITH DR. MCLAUGHLIN AT THIS TIME REGARDING PTS. BLOOD GLUCOSE LEVEL OF 302, AND LACK OF MEDICATION TO CONTROL DIABETES. DR. MCLAUGHLIN GAVE ORDER TO ADD METFORMIN 500MG BID. METFORMIN 500MG BID ADDED TO PTS. MED LIST.
[2017-05-02] VITALS: BP 154/76
--- NOTE | 2017-05-02 00:30 | NUR ---
SLEEPING, AWAKENS EASILY BUT REMAINS DROWSY. RESPIRATIONS EASY. LUNGS DIMINISHED. PULSE OX 98% RA. VALERIO PATENT. C/O UPPER BACK PAIN RATING A 4, MEDICATED WITH NORCO PER PRN ORDER. CALL LIGHT WITHIN REACH. BED ALARM MAINTAINED FOR SAFETY
--- NOTE | 2017-05-02 02:00 | NUR ---
MEDS EFFECTIVE. SLEEPING
--- NOTE | 2017-05-02 06:00 | NUR ---
SLEPT THROUGHOUT NIGHT WITH NO DISTRESS NOTED. RESPIRATIONS EASY. CALL LIGHT WITHIN REACH. NO VOICED COMPLAINTS THIS SHIFT
[2017-05-02 06:44] LABS: BASO # 0.1 10*3/uL (0.0-0.1); EOS # 0.2 10*3/uL (0.0-0.4); EOS % 4.7 % (1.0-4.0); HEMATOCRIT 25.7 % (37.0-47.0); HEMOGLOBIN 7.9 g/dl (12.0-16.0); LYMPH # 1.6 10*3/uL (1.3-4.4); LYMPH % 30.8 % (27.0-41.0); MEAN CELL VOLUME 82.4 fl (81.0-99.0); MEAN CORPUSCULAR HGB 25.3 pg (27.0-31.0); MEAN CORPUSCULAR HGB CONC 30.7 g/dl (33.0-37.0); MEAN PLATELET VOLUME 9.9 fl (9.6-12.3); MONO # 0.8 10*3/uL (0.1-1.0); MONO % 15.9 % (3.0-9.0); NEUT # 2.4 10*3/uL (2.3-7.9); NEUT % 47.2 % (47.0-73.0); PLATELET COUNT AUTOMATED 272 10*3/uL (130-400); RED BLOOD COUNT 3.12 10*6/uL (4.10-5.10); RED CELL DISTRI WIDTH 16.6 % (0-14.5); WHITE BLOOD COUNT 5.1 10*3/uL (4.8-10.8)
[2017-05-02 07:01] LABS: BUN 32 mg/dl (7-24); CHLORIDE 106 mmol/L (98-107); CREATININE 0.87 mg/dL (0.55-1.02); POTASSIUM 4.1 mmol/L (3.5-5.1); SODIUM 142 mmol/L (136-145)
[2017-05-02 08:00] VITALS: BP 172/62
--- NOTE | 2017-05-02 11:08 | NUR ---
PHYSICAL THERAPY Patient presented to therapy with report of fatigue but otherwise feeling better she said. Patient performed supine to sit at EOB and sit to stand transfers with Min. A x 1. Patient TRANSFERED TO BEDSIDE CHAIR WITH MIN. A X 1. Patient performed seated ther ex in all planes of mvmt. x 20 reps each AROM. Patient was 1:1 with this FLOAT REMOVER for 25 minutes total. Jesus Velasquez FLOAT REMOVER
[2017-05-02 12:00] VITALS: BP 135/50
[2017-05-02 16:00] VITALS: BP 129/47
[2017-05-02 20:00] VITALS: BP 118/53
--- NOTE | 2017-05-02 20:30 | NUR ---
1930 TO NOW PT. UP TO BATHROOM WITH ASSISTANCE X1 HAD LARGE LOOSE MARK COLORED STOOL AND PT. RETURNED TO BED AND THEN HAD TO GO AGAIN "I CAN'T STOP IT". PT. UNABLE TO MAKE IT TO BATHROOM TOILET. LARGE STOOL IN BED AND DOWN SIDE OF BED. RN CALLED FOR HELP AND THIS RN ENTERED ROOM. PT. HAD MODERATED LIQUID EMESIS PT ALSO CONTINUED TO HAVE STOOL. PATIENT ATTENDANT ENTERED ROOM AND THIS RN AND P.A. STRIPPED BED AND GOT PT. CLEANED UP, FLOOR WIPED UP. TRYING TO GET PT. BACK TO BED BUT PT. CONTINUES TO HAVE LIQUID STOOLS AND EMESIS. WILL CONT. TO MONITOR.
--- NOTE | 2017-05-02 20:48 | NUR ---
CALLED REGARDING EMESIS. ORDERS RECEIVED. SEE MAR.
--- NOTE | 2017-05-02 22:34 | NUR ---
PT REQUESTED MEDICATOIN FOR NAUSEA AND VOMITING. ZOFRAN WAS GIVEN.
--- NOTE | 2017-05-02 23:18 | NUR ---
ZOFRAN EFFECTIVE PER PT. N/V HAD DECREASED AND PT STATES "I FEEL BETTER."
[2017-05-03] VITALS (18 sets, daily range): BP systolic 112–169; BP diastolic 40–76
--- NOTE | 2017-05-03 06:00 | NUR ---
PT. GIVEN FLEETS ENEMA PER ORDER. PT. ABLE TO TAKE MOST ALL FLEETS FLUID CLEAR YELLOW TINTED FLUID EXPELLED. PT.TOLERATED WELL.
--- NOTE | 2017-05-03 06:35 | NUR ---
FLEETS YIELDED BROWN LIQUID STOOL. TAP WATER ENEMA X1 GIVEN PER POLICY FLUID RAN CLEAR AFTER INSTILLING ABOUT 500CC WARM WATER. PT. TOLERATED WELL. PT. BATHED AND BEDLINENS CHANGED.
[2017-05-03 07:48] LABS: CHLORIDE 103 mmol/L (98-107); POTASSIUM 4.3 mmol/L (3.5-5.1); SODIUM 138 mmol/L (136-145)
[2017-05-03 07:49] LABS: BUN 24 mg/dl (7-24); CREATININE 0.93 mg/dL (0.55-1.02)
--- NOTE | 2017-05-03 10:35 | NUR ---
PHYSICAL THERAPY Pt said that she is going down for a colonoscopy this AM and did not want to get up at this time. COLIN RICHARDSON DIRECTOR MACHINE.
--- NOTE | 2017-05-03 11:19 | NUR ---
VERBAL ORDER FROM FOR 1 UNIT OF PACK CELLS TO BE TRANSFUSED
--- NOTE | 2017-05-03 13:56 | NUR ---
[facility] and can return when stable for discharge.
--- NOTE | 2017-05-03 14:40 | NUR ---
TRANSFUSION STOPPED DUE TO LEAKING IV. IV REMOVED.
--- NOTE | 2017-05-03 15:10 | NUR ---
IV RE-ESTABLISHED AFTER A FEW ATTEMPTS. TRANSFUSIONS STARTED
--- NOTE | 2017-05-03 16:40 | NUR ---
BLOOD TRANSFUSION COMPLETED, PT CAUGHT UP ON MISSED AM MEDS DUE TO BEING NPO FOR SCOPES
[2017-05-04] VITALS: BP 155/51
[2017-05-04 07:05] LABS: BUN 33 mg/dl (7-24); CHLORIDE 105 mmol/L (98-107); CREATININE 1.05 mg/dL (0.55-1.02); POTASSIUM 4.1 mmol/L (3.5-5.1); SODIUM 143 mmol/L (136-145)
[2017-05-04 08:00] VITALS: BP 130/54
--- NOTE | 2017-05-04 08:00 | NUR ---
PATIENT COMPLAINING OF BACK PAIN RATING A 2/10. ROUTINE NORCO 5/325 GIVEN ORDERED. PATIENT VOICES NO OTHER COMPLAINTS. BED IS IN LOW POSITION. CALL LIGHT IS WITHIN REACH.
[2017-05-04] MEDS ORDERED: GLUCOPHAGE500 MG PO (08:07)
[2017-05-04] MEDS ORDERED: LASIX40 MG PO (08:07)
[2017-05-04] MEDS ORDERED: NORCO 5-325 TA1 EACH PO (08:07)
[2017-05-04] MEDS ORDERED: PANTOPRAZOLE SO40 MG PO (08:07)
--- NOTE | 2017-05-04 09:00 | NUR ---
NO COMPLAINTS OF BACK PAIN. NORCO EFFECTIVE.
--- NOTE | 2017-05-04 09:52 | NUR ---
Shift chart check completed.
--- NOTE | 2017-05-04 11:00 | NUR ---
NURSE TO NURSE CALLED TO [facility].
--- NOTE | 2017-05-04 12:55 | NUR ---
Discharge instructions reviewed with patient/family. Patient receptive and verbalizes understanding. Follow-up care arranged. Written instructions given to patient/family. [place] REMOVED INTACT. MONITOR REMOVED. PATIENT DID NOT RECEIVE FLU SHOT BECAUSE SHE WAS ALREADY VACCINATED. PATIENT DISCHARGED TO [facility] BY WAY OF [place]. [place] MOONE[place]
--- NOTE | 2017-05-06 07:49 | NUR ---
PHYSICAL THERAPY CO-SIGN I approve of the Phyical Therapy notes written above. EDMOND BEASLEY PT
== END 2017-05-04 12:55 | disposition other institution (70) | DRG 190 ==
LOC: ED 22:37 → 5E 05-01 00:24 → EDHOLD 05-01 00:24 → 5E 05-01 01:08
PROVIDERS: Student in an Organized Health Care Education/Training Program; ADMIT Internal Medicine
PROC: 30233N1 Transfusion of Nonautologous Red Blood Cells into Peripheral Vein, Percutaneous Approach (ICD-10-PCS; principal; 2017-05-03)
PROC: 0DJD8ZZ Inspection of Lower Intestinal Tract, Via Natural or Artificial Opening Endoscopic (ICD-10-PCS; principal; 2017-05-03)
PROC: 0DB68ZX Excision of Stomach, Via Natural or Artificial Opening Endoscopic, Diagnostic (ICD-10-PCS; principal; 2017-05-03)
DX: J44.1 Chronic obstructive pulmonary disease with (acute) exacerbation (principal); I50.33 Acute on chronic diastolic (congestive) heart failure; E11.9 Type 2 diabetes mellitus without complications; D50.0 Iron deficiency anemia secondary to blood loss (chronic); K25.9 Gastric ulcer, unspecified as acute or chronic, without hemorrhage or perforation; R62.7 Adult failure to thrive; I11.0 Hypertensive heart disease with heart failure; Z66 Do not resuscitate; Z51.5 Encounter for palliative care; G89.29 Other chronic pain; M54.9 Dorsalgia, unspecified; M51.16 Intervertebral disc disorders with radiculopathy, lumbar region; E66.9 Obesity, unspecified; E03.9 Hypothyroidism, unspecified; K29.70 Gastritis, unspecified, without bleeding; I25.10 Atherosclerotic heart disease of native coronary artery without angina pectoris; Z95.1 Presence of aortocoronary bypass graft; Z90.49 Acquired absence of other specified parts of digestive tract; Z88.8 Allergy status to other drugs, medicaments and biological substances; Z90.710 Acquired absence of both cervix and uterus; Z68.30 Body mass index [BMI] 30.0-30.9, adult

== ENCOUNTER 2017-10-23 15:55 | Inpatient (IN) | payer OTHER ==
[~2017-10-23] VITALS: Ht 157.5 cm; Wt 78.3 kg
--- NOTE | ~2017-10-23 | PR ---
[place], [place] PROGRESS NOTE NAME: NINA FOFANA UNIT #: [id number] ROOM: 515 DOCTOR: TAMY MCLAUGHLIN MD BIRTHDATE: [birth year] DOS: 10/24/2017 SUBJECTIVE: The patient is having difficulty sleeping at night. Complaining of weakness, but improving and working with physical therapy. The patient is still having difficulty with walking, but overall getting stronger and better. OBJECTIVE: GENERAL APPEARANCE: Generalized weakness and obesity. VITAL SIGNS: Blood pressure was 150/52, heart rate 65 beats per minute, breathing 20 times per minute, temperature 98 degrees Fahrenheit. HEENT AND NECK: Exam within normal limits. CARDIOVASCULAR SYSTEM: Heart rate is regular in rate and rhythm. S1 and S2 normally audible. LUNGS: Clear to auscultation. ABDOMEN: Soft, nontender. No obvious organomegaly. Bowel sounds are present. EXTREMITIES: Without significant cyanosis or edema. IMPRESSION: 1. Adult failure to thrive and inability to ambulate. The patient started walking with physical therapy with help and is overall getting stronger. 2. Dehydration with acute over chronic kidney failure with a BUN and creatinine of 67 and 2.4. I will give her one more liter of normal saline. The patient apparently dehydrated secondary to nausea and diarrhea, which has resolved. 3. Hypokalemia, apparently secondary to diarrhea. I will give her extra potassium supplements. 4. Adult failure to thrive, acute over chronic. Generalized weakness. The patient working in physical therapy. 5. Diabetic gastroparesis. The patient's nausea has improved. 6. Chronic primary insomnia. The patient to be treated with trazodone. 7. Lumbar spondylosis treated with Vicodin. 8. Coronary artery disease of the benton vessels without chest pain. 9. Benign essential hypertension. Blood pressure is being treated and monitored. 10. Centrilobular emphysema with chronic shortness of breath, treated with bronchodilators. [place], [place] PROGRESS NOTE NAME: NINA FOFANA UNIT #: [id number] ROOM: 515 DOCTOR: TAMY MCLAUGHLIN MD BIRTHDATE: [birth year] TAMY MCLAUGHLIN MD CM:NELSON [id number] TAMY MCLAUGHLIN MD 10/25/17 0321 interface
--- NOTE | ~2017-10-23 | WRIGHTHP ---
[place], [place] PATIENT HISTORY AND PHYSICAL EXAM NAME: NINA FOFANA [facility] #: [id number] UNIT #: [id number] ROOM: [facility] DOCTOR: TAMY MCLAUGHLIN MD BIRTHDATE: [birth year] DOS: 10/23/2017 HISTORY OF PRESENT ILLNESS: The patient is a 77-year-old female with a past medical history of, 1. Diastolic type CHF. 2. Benign essential hypertension. 3. Obesity. 4. History of gastric erosions and GI bleed. 5. Adult failure to thrive. 6. Chronic back pains and lumbar disk disease with radiculopathy. 7. Type 2 diabetes mellitus. 8. Hypothyroidism. 9. Diabetic gastroparesis. 10. History of pyloric stenosis and ballooning procedure by Dr. Toth in the past. 11. Adult failure to thrive with recurrent falls. The patient presented to the office extremely weak. She could not even sit straight and in her chair in the examining room. She had her head hanging back and was barely providing me with history. The patient indicated that for a few days she had been having nausea and vomiting and she and her son were both sick. The patient's son takes care of her at home. The patient had complains of not being able to eat and had diarrhea and was feeling extremely weak and barely able to walk. The patient was agreeable to hospital admission and was sent over to be admitted to a monitored bed with dehydration, not eating and inability to walk. REVIEW OF SYSTEMS: LUNGS: With some shortness of breath. GASTROINTESTINAL: The patient with some nausea and being unable to eat and complains of diarrhea recently. CARDIOVASCULAR: No chest pains or palpitations. FAMILY HISTORY: Noncontributory. SOCIAL HISTORY: Lives at home and her son helps her out. Denies smoking cigarettes, alcohol and drug abuse. ALLERGIES: Known allergies to TETRACYCLINE, TYLENOL and LORATADINE. HOME MEDICATIONS: Lisinopril, levothyroxine, labetalol, furosemide, Plavix, Protonix, Vicodin. PHYSICAL EXAMINATION: GENERAL: Alert, oriented, but very weak, but in no acute distress, except for obesity and generalized weakness. VITAL SIGNS: Blood pressure 124/58, heart rate 64 beats per minute, breathing 16 times per minute, temperature 98 degrees Fahrenheit. HEENT AND NECK: Extraocular movements are intact. Sclerae are anicteric. Oral mucosa is moist and clean. No obvious facial weakness. Neck is supple without [place], [place] PATIENT HISTORY AND PHYSICAL EXAM [facility] [id number] UN[facility] #: [id number] ROOM: [facility] DOCTOR: TAMY MCLAUGHLIN MD BIRTHDATE: [birth year] any lymphadenopathy. No thyromegaly. No JVD. No carotid arterial bruits. LUNGS: Clear to auscultation. No wheezing. No rhonchi. CARDIOVASCULAR SYSTEM: Heart rate is regular in rate and rhythm. S1 and S2 normally audible. No significant murmur or any other abnormal cardiac sounds. ABDOMEN: Soft, nontender. No obvious organomegaly. Bowel sounds are present. No obvious herniation. EXTREMITIES: Without significant cyanosis or edema. Warm to touch. CENTRAL NERVOUS SYSTEM: Alert and oriented x 3. Cranial nerves II-XII are intact. Speech is normal. The patient is able to move all extremities. Normal muscle strength. Deep tendon reflexes are equal on both sides. Plantars were downgoing. IMPRESSION: 1. The patient with probable viral gastroenteritis with nausea and inability to eat along with acute diarrhea, leading to hypotension and dehydration. I will start the patient on normal saline with caution because she also has history of significant congestive heart failure. The patient's serum electrolytes will be monitored. 2. Acute over chronic adult failure to thrive with generalized weakness and inability to walk. The patient to be started on physical therapy and encouraged to eat. 3. Diabetic gastroparesis, which is apparently contributing to her present symptoms of inability to eat. I will treat her accordingly with Zofran and even Reglan as needed while the patient is being hydrated with IV fluids. 4. Type 2 diabetes mellitus. The patient's blood sugar is to be monitored and treated as needed. 5. Lumbar spondylosis and chronic lower back pains with degenerative joint disease. The patient to be continued on Vicodin on as need basis. 6. Coronary artery disease of the [place] vessels, without chest pains. 7. Benign essential hypertension. The patient to be continued on her labetalol and lisinopril and blood pressure is to be monitored closely. For any signs of hypotension, her blood pressure medications will have to be held back. 8. Centrilobular emphysema with chronic shortness of breath, presently some increasing shortness of breath. The patient will be followed closely and treated with oxygen as needed to maintain a pulse ox of more than 90%. [place], [place] PATIENT HISTORY AND PHYSICAL EXAM NAME: NINA FOFANA UNIT #: [id number] ROOM: [facility] DOCTOR: TAMY MCLAUGHLIN MD BIRTHDATE: [birth year] TAMY MCLAUGHLIN MD CM:HISPHYS:PATIENT HISTORY AND PHYSICAL EXAMINATION [id number] TAMY MCLAUGHLIN MD 10/23/17 2213 interface
--- NOTE | ~2017-10-23 | PR ---
[place], [place] PROGRESS NOTE [id number] #: [id number] ROOM: 515 DOCTOR: TAMY MCLAUGHLIN MD BIRTHDATE: [birth year] DOS: 10/25/2017 SUBJECTIVE: The patient continues to improve slowly. She has refused to go for rehab to long term facility. OBJECTIVE: VITAL SIGNS: Blood pressure 141/46, breathing 18 times per minute, heart rate of 68 beats per minute, afebrile. GENERAL APPEARANCE: The patient is alert and oriented x 3, in no visible distress, except for obesity and generalized weakness. HEENT AND NECK: Exam within normal limits. CARDIOVASCULAR SYSTEM: Heart rate is regular in rate and rhythm. S1 and S2 normally audible. LUNGS: Clear to auscultation. ABDOMEN: Soft, nontender. No obvious organomegaly. Bowel sounds are present. EXTREMITIES: Without significant cyanosis or edema. IMPRESSION: 1. The patient with adult failure to thrive and inability to ambulate is improving with treatment, but she is refusing to go to long term facility for physical therapy and rehabilitation, which she requires. The patient is getting stronger during her stay at the hospital and I may be able to discharge her to home tomorrow. 2. Dehydration with elevation of BUN, creatinine, treated with hydration with normal saline. BUN and creatinine has improved to 54 and 1.45. 3. Chronic primary insomnia, treated as needed with trazodone. 4. Lumbar spondylosis with chronic lower back pains. The patient ambulates better with opioids. She was continued on Vicodin. 5. Coronary artery disease with a eek vessel without any chest pain. 6. Centrilobular emphysema which is chronic with chronic shortness of breath, treated with bronchodilators. TAMY MCLAUGHLIN MD CM:PNCHARLES [id number] TAMY MCLAUGHLIN MD 10/25/17 1326 interface
--- NOTE | ~2017-10-23 | DS ---
[place], [place] DISCHARGE SUMMARY NAME: NINA FOFANA [facility] #: [id number] UNIT #: [id number] ROOM: 515 DOCTOR: TAMY MCLAUGHLIN MD BIRTHDATE: [birth year] DOS: 10/26/2017 DISCHARGE DIAGNOSES: 1. The patient with advanced adult failure to thrive, disability and suboptimal prognosis. 2. Inability to ambulate. 3. Dehydration with elevation of BUN, creatinine, acute over chronic kidney failure related to dehydration. 4. Chronic primary insomnia. 5. Lumbar spondylosis. 6. Coronary artery disease of the [place] vessels. 7. Centrilobular emphysema. 8. Diastolic type, chronic congestive heart failure. 9. Gastric erosions and gastroesophageal bleed in the past. 10. Chronic back pains and lumbar disk disease with radiculopathy. 11. Type 2 diabetes mellitus. 12. Hypothyroidism. 13. History of pyloric stenosis with the ballooning procedure performed by Dr. Toth in the past. 14. Adult failure to thrive with recurrent falls. The patient with suboptimal health, obesity generalized weakness and advanced adult failure to thrive. The patient has problems with dyspnea on exertion and she worked with physical therapy. I had recommended the patient going to half-way facility, but the facility that was arranged, the patient not willing to go to and would rather go home. A walking pulse ox remained in the 90s, but she does have significant problem with physical deconditioning. 15. Acute dehydration, treated with hydration with IV fluids and BUN and creatinine has improved. 16. Acute over chronic kidney disease with BUN and creatinine improved from 67 and 2.38 at admission to 43 and 1.22 at discharge. 17. Type 2 diabetes mellitus with reasonably controlled blood sugars. Generally stayed between 100-130 range during her stay at the hospital. 18. Coronary artery disease of the [place] vessels without chest pains. 19. Chronic back pains and lumbar spondylosis with degenerative joint disease. Pain is controlled with hydrocodone. The patient is more functional with this treatment. LABORATORY DATA: BUN and creatinine improved to 43 and 1.2. Hemoglobin was 10.5. Normal platelets. Chest x-ray showed no acute abnormality. Pulse ox stayed in around 95% with ambulation, but patient does get tired. DISCHARGE MANAGEMENT: The patient to continue physical therapy at home, amlodipine 5 mg a day, labetalol 100 mg b.i.d., Tylenol p.r.n., trazodone 50 mg at bedtime p.r.n. for sleep, liquid tears as needed during the day. Tramadol 50 mg t.i.d. p.r.n. for pain, lisinopril 20 mg daily, furosemide 40 mg a day, Plavix 75 mg a day, Protonix 40 mg a day, levothyroxine 100 mcg daily. Follow up at the office with me within 1 week. [place], [place] DISCHARGE SUMMARY NAME: NINA FOFANA UNIT #: [id number] ROOM: [facility] DOCTOR: TAMY MCLAUGHLIN MD BIRTHDATE: [birth year] TAMY MCLAUGHLIN MD CM:ROHAN 21 48 TAMY MCLAUGHLIN MD 10/26/172147 interface
[~2017-10-23 15:55] MED LIST changes: +LASIX40 MG PO; +PANTOPRAZOLE SO40 MG PO; +PLAVIX75 M1 PO
[2017-10-23 17:49] VITALS: BP 124/58
[2017-10-23 20:00] VITALS: BP 150/48
[2017-10-24] VITALS: BP 114/48
[2017-10-24 06:50] LABS: BASO # 0.1 10*3/uL (0.0-0.1); BASO % 0.8 % (0.0-1.0); EOS # 0.3 10*3/uL (0.0-0.4); EOS % 3.2 % (1.0-4.0); HEMATOCRIT 32.3 % (37.0-47.0); HEMOGLOBIN 10.5 g/dl (12.0-16.0); LYMPH # 1.8 10*3/uL (1.3-4.4); LYMPH % 23.6 % (27.0-41.0); MEAN CELL VOLUME 85.9 fl (81.0-99.0); MEAN CORPUSCULAR HGB 27.9 pg (27.0-31.0); MEAN CORPUSCULAR HGB CONC 32.5 g/dl (33.0-37.0); MEAN PLATELET VOLUME 10.1 fl (9.6-12.3); MONO # 1.1 10*3/uL (0.1-1.0); MONO % 13.9 % (3.0-9.0); NEUT # 4.5 10*3/uL (2.3-7.9); NEUT % 58.2 % (47.0-73.0); PLATELET COUNT AUTOMATED 284 10*3/uL (130-400); RED BLOOD COUNT 3.76 10*6/uL (4.10-5.10); RED CELL DISTRI WIDTH 16.8 % (0-14.5); WHITE BLOOD COUNT 7.8 10*3/uL (4.8-10.8)
[2017-10-24 07:33] LABS: CREATININE 2.38 mg/dL (0.55-1.02); POTASSIUM 3.1 mmol/L (3.5-5.1)
[2017-10-24 08:00] VITALS: BP 140/50
[2017-10-24] MEDS ORDERED: NORVASC5 MG PO (09:17)
[2017-10-24] MEDS ORDERED: ULTRAM50 MG PO (09:17)
[2017-10-24] MEDS ORDERED: PRINZIDE PO (09:19)
[2017-10-24] MEDS ORDERED: LABETALOL HCL100 MG PO (09:20)
[2017-10-24] MEDS ORDERED: TYLENOL EXTRA500 MG PO (09:32)
[2017-10-24 12:00] VITALS: BP 150/52
[2017-10-24 15:50] LABS: BILIRUBIN NEGATIVE (NEGATIVE); BLOOD TRACE-INTACT (NEGATIVE); CLARITY CLEAR (CLEAR); COLOR YELLOW (YELLOW); GLUCOSE NEGATIVE (NEGATIVE); KETONE NEGATIVE (NEGATIVE); LEUKO ESTERASE NEGATIVE (NEGATIVE); NITRITE NEGATIVE (NEGATIVE); UROBILINOGEN 0.2 E.U./dl (0.2-1.0)
[2017-10-24 16:25] LABS: BACTERIA TRACE; EPITHELIAL CELLS 35-40
[2017-10-24 20:00] VITALS: BP 113/48
[2017-10-25] VITALS: BP 135/59
[2017-10-25 07:02] LABS: CREATININE 1.45 mg/dL (0.55-1.02)
[2017-10-25 08:00] VITALS: BP 141/46
[2017-10-25 13:00] VITALS: BP 135/50
[2017-10-25 16:00] VITALS: BP 135/45
[2017-10-25 20:00] VITALS: BP 149/66
[2017-10-26] VITALS: BP 137/45
[2017-10-26 06:47] LABS: CREATININE 1.22 mg/dL (0.55-1.02); POTASSIUM 3.6 mmol/L (3.5-5.1)
[2017-10-26 08:00] VITALS: BP 156/50
[2017-10-26 12:00] VITALS: BP 168/52
[2017-10-26 16:00] VITALS: BP 154/58
== END 2017-10-26 20:02 | disposition home or self-care (01) | DRG 73 ==
LOC: 5E 15:55
PROVIDERS: Internal Medicine
DX: E11.43 Type 2 diabetes mellitus with diabetic autonomic (poly)neuropathy (principal); N17.0 Acute kidney failure with tubular necrosis; I95.9 Hypotension, unspecified; E11.22 Type 2 diabetes mellitus with diabetic chronic kidney disease; I50.32 Chronic diastolic (congestive) heart failure; E86.0 Dehydration; K31.84 Gastroparesis; Z66 Do not resuscitate; J43.2 Centrilobular emphysema; R62.7 Adult failure to thrive; N18.9 Chronic kidney disease, unspecified; Z51.5 Encounter for palliative care; F51.04 Psychophysiologic insomnia; M47.896 Other spondylosis, lumbar region; I12.9 Hypertensive chronic kidney disease with stage 1 through stage 4 chronic kidney disease, or unspecified chronic kidney disease; I25.10 Atherosclerotic heart disease of native coronary artery without angina pectoris; G89.29 Other chronic pain; E87.6 Hypokalemia; M54.9 Dorsalgia, unspecified; E03.9 Hypothyroidism, unspecified; E66.9 Obesity, unspecified; Z88.1 Allergy status to other antibiotic agents; Z88.8 Allergy status to other drugs, medicaments and biological substances; Z79.899 Other long term (current) drug therapy

== ENCOUNTER 2018-06-13 12:32 | Emergency (ER) | payer OTHER ==
[~2018-06-13] VITALS: Ht 157.4 cm; Wt 81.6 kg
--- NOTE | ~2018-06-13 | EKG ---
[place], [place] ELECTROCARDIOGRAM REPORT NAME: NINA FOFANA UNIT #: [id number] ROOM: DOCTOR: EPIPHANY DRAFT REPORT BIRTHDATE: [birth year] [facility] Test Date: 2018-06-13 Test Time: 12:52:05 Pat Name: NINA FOFANA Department: Room: Gender: F Manager Cosmetics: [place] : 1940 Requested By: ALEXANDRU NASCIMENTO Order Number: [id number] Reading MD: Jewel Montana MD Measurements Intervals [place] Rate: 91 P: 50 TX: 137 QRS: -57 QRSD: 165 T: 165 QT: 454 QTc: 559 Interpretive Statements Sinus rhythm Left bundle branch block Baseline wander in lead(s) V2 Compared to ECG 03/21/2018 11:59:23 No significant changes Electronically Signed On 06-17-2018 11:07:39 PST by Jewel Montana MD CM:EKGRPT:ELECTROCARDIOGRAM REPORT [id number] ALEXANDRU NASCIMENTO EPIPHANY DRAFT REPORT ALEXANDRU NASCIMENTO
[~2018-06-13 12:32] MED LIST changes: +LABETALOL HCL100 MG PO; +NEURONTIN100 MG PO; +NORMODYNE,TRAN200 MG PO; +ORPHENADRINE C100 M1 PO; +PRINZIDE PO; +TYLENOL EXTRA500 MG PO; +ULTRAM50 MG PO; +VALIUM5 MG PO; +VOLTAREN100 GM T
[2018-06-13 12:51] LABS: BASO # 0.1 10*3/uL (0.0-0.1); EOS # 0.2 10*3/uL (0.0-0.4); EOS % 2.8 % (1.0-4.0); HEMATOCRIT 37.8 % (37.0-47.0); HEMOGLOBIN 11.7 g/dl (12.0-16.0); LYMPH % 13.8 % (27.0-41.0); MEAN CELL VOLUME 86.1 fl (81.0-99.0); MEAN CORPUSCULAR HGB 26.7 pg (27.0-31.0); MONO # 1.2 10*3/uL (0.1-1.0); MONO % 16.8 % (3.0-9.0); NEUT # 4.7 10*3/uL (2.3-7.9); NEUT % 65.3 % (47.0-73.0); PLATELET COUNT AUTOMATED 278 10*3/uL (130-400); RED BLOOD COUNT 4.39 10*6/uL (4.10-5.10); RED CELL DISTRI WIDTH 16.8 % (0-14.5); WHITE BLOOD COUNT 7.2 10*3/uL (4.8-10.8)
[2018-06-13 13:00] LABS: ACT PARTIAL THROMBO TIME 20.7 SECONDS (20.8-31.5)
[2018-06-13 13:09] LABS: ALBUMIN 2.8 gm/dl (3.1-4.5); CREATININE 1.21 mg/dL (0.55-1.02); POTASSIUM 3.1 mmol/L (3.5-5.1); TOTAL PROTEIN 6.5 gm/dL (6.4-8.2)
[2018-06-13 13:12] LABS: TROPONIN I 0.587 ng/ml (<0.045)
[2018-06-13 15:14] VITALS: BP 143/64
== END 2018-06-13 16:00 | disposition short-term general hospital (02) ==
LOC: ED 12:32
PROVIDERS: Nurse Practitioner Family
DX: R79.89 Other specified abnormal findings of blood chemistry (principal); R94.31 Abnormal electrocardiogram [ECG] [EKG]; I11.0 Hypertensive heart disease with heart failure; I50.9 Heart failure, unspecified; E66.9 Obesity, unspecified; E11.9 Type 2 diabetes mellitus without complications; J44.9 Chronic obstructive pulmonary disease, unspecified; M62.830 Muscle spasm of back; Z79.899 Other long term (current) drug therapy; Z88.1 Allergy status to other antibiotic agents; Z88.8 Allergy status to other drugs, medicaments and biological substances; Z90.710 Acquired absence of both cervix and uterus; Z90.49 Acquired absence of other specified parts of digestive tract

== ENCOUNTER 2018-09-01 09:10 | Emergency (ER) | payer OTHER ==
[2018-09-01 09:13] VITALS: BP 144/91
[2018-09-01] MEDS ORDERED: ASPIRIN325 M2 PO (09:16)
[2018-09-01] MEDS ORDERED: GABAPENTIN100 M2 PO (09:17)
[2018-09-01] MEDS ORDERED: TRAMADOL HCL50 MG PO (09:18)
[2018-09-01] MEDS ORDERED: VITAMIN D31000 UNI1 PO (09:19)
[2018-09-01 10:06] LABS: BASO # 0.1 10*3/uL (0.0-0.1); BASO % 0.9 % (0.0-1.0); EOS # 0.3 10*3/uL (0.0-0.4); EOS % 3.2 % (1.0-4.0); HEMATOCRIT 30.8 % (37.0-47.0); HEMOGLOBIN 9.5 g/dl (12.0-16.0); LYMPH % 13.3 % (27.0-41.0); MEAN CELL VOLUME 83.7 fl (81.0-99.0); MEAN CORPUSCULAR HGB 25.8 pg (27.0-31.0); MEAN CORPUSCULAR HGB CONC 30.8 g/dl (33.0-37.0); MEAN PLATELET VOLUME 9.8 fl (9.6-12.3); MONO # 0.9 10*3/uL (0.1-1.0); MONO % 11.8 % (3.0-9.0); NEUT # 5.5 10*3/uL (2.3-7.9); NEUT % 70.4 % (47.0-73.0); PLATELET COUNT AUTOMATED 314 10*3/uL (130-400); RED BLOOD COUNT 3.68 10*6/uL (4.10-5.10); RED CELL DISTRI WIDTH 16.7 % (0-14.5); WHITE BLOOD COUNT 7.8 10*3/uL (4.8-10.8)
[2018-09-01 10:15] LABS: ACT PARTIAL THROMBO TIME 21.2 SECONDS (20.8-31.5)
[2018-09-01 10:19] LABS: ALBUMIN 3.1 gm/dl (3.1-4.5); CREATININE 1.47 mg/dL (0.55-1.02); POTASSIUM 4.2 mmol/L (3.5-5.1); TOTAL PROTEIN 6.6 gm/dL (6.4-8.2)
[2018-09-01 11:43] LABS: BILIRUBIN NEGATIVE (NEGATIVE); BLOOD NEGATIVE (NEGATIVE); CLARITY CLEAR (CLEAR); COLOR YELLOW (YELLOW); GLUCOSE NEGATIVE (NEGATIVE); KETONE NEGATIVE (NEGATIVE); LEUKO ESTERASE NEGATIVE (NEGATIVE); NITRITE NEGATIVE (NEGATIVE); UROBILINOGEN 0.2 E.U./dl (0.2-1.0)
[2018-09-01 11:52] LABS: RBC 0-2 rbc/hpf (0-2)
== END 2018-09-01 13:30 | disposition home or self-care (01) ==
LOC: ED 09:10
PROVIDERS: Emergency Medicine
DX: G89.29 Other chronic pain (principal); M54.9 Dorsalgia, unspecified; J44.9 Chronic obstructive pulmonary disease, unspecified; I11.0 Hypertensive heart disease with heart failure; I50.9 Heart failure, unspecified; E66.9 Obesity, unspecified; E11.9 Type 2 diabetes mellitus without complications; Z88.1 Allergy status to other antibiotic agents; Z88.8 Allergy status to other drugs, medicaments and biological substances; Z79.899 Other long term (current) drug therapy; Z79.82 Long term (current) use of aspirin; Z90.710 Acquired absence of both cervix and uterus; Z90.49 Acquired absence of other specified parts of digestive tract; X50.3XXA Overexertion from repetitive movements, initial encounter; Y93.01 Activity, walking, marching and hiking; Y92.098 Other place in other non-institutional residence as the place of occurrence of the external cause; Y99.8 Other external cause status

== ENCOUNTER 2020-02-11 12:02 | Inpatient (IN) | payer OTHER ==
[~2020-02-11] VITALS: Ht 157.5 cm; Wt 83.0 kg
[~2020-02-11 12:02] MED LIST changes: +GABAPENTIN800 MG PO; +TRAMADOL HCL50 MG PO; +VITAMIN D3125 MC1 PO
[2020-02-11 12:14] VITALS: BP 143/55
[2020-02-11 12:44] LABS: BASO % 0.8 % (0.0-1.0); EOS # 0.2 10*3/uL (0.0-0.4); EOS % 3.8 % (1.0-4.0); HEMATOCRIT 35.9 % (37.0-47.0); LYMPH % 19.3 % (27.0-41.0); MEAN CORPUSCULAR HGB 26.8 pg (27.0-31.0); MEAN CORPUSCULAR HGB CONC 29.8 g/dl (33.0-37.0); MEAN PLATELET VOLUME 9.3 fl (9.6-12.3); MONO # 0.6 10*3/uL (0.1-1.0); MONO % 11.9 % (3.0-9.0); NEUT # 3.3 10*3/uL (2.3-7.9); PLATELET COUNT AUTOMATED 344 10*3/uL (130-400); RED BLOOD COUNT 3.99 10*6/uL (4.10-5.10); RED CELL DISTRI WIDTH 15.3 % (0-14.5); WHITE BLOOD COUNT 5.2 10*3/uL (4.8-10.8)
[2020-02-11 12:55] LABS: ACT PARTIAL THROMBO TIME 23.5 SECONDS (20.0-32.1)
[2020-02-11 13:01] LABS: BUN 20 mg/dl (7-24); CHLORIDE 109 mmol/L (98-107); CREATININE 1.43 mg/dL (0.55-1.02); POTASSIUM 4.1 mmol/L (3.5-5.1); SODIUM 141 mmol/L (136-145)
[2020-02-11 13:03] LABS: TROPONIN I < 0.015 ng/ml (<0.045)
[2020-02-11 14:25] VITALS: BP 190/78
--- NOTE | 2020-02-11 14:25 | NUR ---
Time: 1424 A 79 year old MALE admitted to under services of DR. LISSETTE NAVA,TAMY Cleary Pt. arrived via bed from ER. Chief complaint: SPEECH ABNORMALTY,DYSPHAGIA. MEERA MARKS
[2020-02-11] MEDS ORDERED: DULCOLAX STOOL100 MG PO (15:32)
[2020-02-11] MEDS ORDERED: POTASSIUM CHLO10 MEQ PO (15:34)
[2020-02-11] MEDS ORDERED: LISINOPRIL40 MG PO (15:34)
[2020-02-11 16:00] VITALS: BP 196/56
--- NOTE | 2020-02-11 16:45 | NUR ---
CALLED DR. MCLAUGHLIN ORDERS TAKEN AND REVIEWED.
--- NOTE | 2020-02-11 17:35 | NUR ---
PT TOLERATED ROUTINE MED WITH NO PROBLEM. SITTING UP IN CHAIR. CALL LIGHT IN REACH. BODY ALARM ON.
--- NOTE | 2020-02-11 19:00 | NUR ---
ASSUMED CARE FOR THIS PT AT THIS TIME. PT SITTING UP IN RECLINER CHAIR. CALL LIGHT IN REACH.
--- NOTE | 2020-02-11 19:43 | NUR ---
MEDICATED W/ES TYLENOL FOR C/O CHRONIC BACK PAIN 03/31. PT SITTING UP IN RECLINER CHAIR. CALL LIGHT IN REACH.
[2020-02-11 20:00] VITALS: BP 126/40
--- NOTE | 2020-02-11 20:43 | NUR ---
PT RESTING QUIETLY IN BED. PT STATES TYELNOL WAS A LITTLE EFFECTIVE FOR PAIN RELIEF.
--- NOTE | 2020-02-11 23:48 | NUR ---
DR. ACE NOTIFIED OF PT'S MANUAL BP OF 172/70. GIVE PT HER NORVASC AND LISINOPRIL NOW.
[2020-02-11 23:49] VITALS: BP 172/70
[2020-02-12 01:51] VITALS: BP 182/87
[2020-02-12 04:00] VITALS: BP 160/74
--- NOTE | 2020-02-12 07:00 | NUR ---
ARRIVED ON SHIFT, RECEIVED REPORT FROM OFFGOING NURSE, ASSUMED CARE OF PATIENT.
--- NOTE | 2020-02-12 07:35 | NUR ---
INTRODUCED SELF TO PATIENT, PATIENT UP IN RECLINER, CALL LIGHT WITHIN REACH, NO NEEDS VOICED AT THIS TIME, WHITE BOARD UPDATED.
--- NOTE | 2020-02-12 07:38 | NUR ---
PHYSICAL THERAPY Screen and Orders recieved for PT evaluation. Will follow. Sung Interiano SPT Lacy Weston PT
[2020-02-12 08:00] VITALS: BP 178/58
--- NOTE | 2020-02-12 08:37 | NUR ---
Nursing screen received and chart was reviewed. Pt is an 79 y/o F admitted for speech difficulty and dysphagia. If patient has a decline in ADLs, functional status or transfers please send occupational therapy orders. Thank you. Doreen Redd OTR/L
--- NOTE | 2020-02-12 08:49 | NUR ---
Shift chart check completed.
--- NOTE | 2020-02-12 09:00 | NUR ---
[place] Attendant in to talk to patient. Patient states lives at home alone with her niece and nephew checking in on her. There are 0 steps in the home. Physician: Dr. Navin Ashford Pharmacy: [facility] Home health services: would like [facility] on discharge Patient's level of ADLs: MINIMAL ASSIST Patient has working utilities: yes DME: rollator Follow-up physician's appointment after d/c: she prefers to make her own follow up appt after discharge Does patient want to access PORTAL?: no Discharge plan discussed with patient. She is sitting up in her bedside chair. She lives at home alone with her niece and nephew checking in on her. She states she is independent in her ADLs and ambulates with a rollator. Discussed short term rehab and she states Dr. Ashford would like for her to go to a rehab but she refuses. Discussed home health care services and she is agreeable. When provided with a list of agencies she chose [facility]. She stated she did not want [facility] as she has had them in the past. When medically stable she will be discharged to home with [facility] services. She states either Brooke or [facility]or will provide transportation on discharge. MONICA GRANADOS
--- NOTE | 2020-02-12 09:15 | NUR ---
ONE TYLENOL GIVEN FOR ALL OVER BODY ACHES RATING 2/10.
--- NOTE | 2020-02-12 11:24 | NUR ---
PHYSICAL THERAPY Physical Therapy evaluation completed on 4th floor with full evaluation to follow. Recommend physical therapy per plan of care and SNF upon discharge. Thank you for this referral. Lacy Weston PT
[2020-02-12 12:00] VITALS: BP 155/49
--- NOTE | 2020-02-12 12:37 | NUR ---
Patient requesting OV upon discharge. Received order and face to face. Faxed to [facility] with a possible D/C date of "over the weekend".
--- NOTE | 2020-02-12 13:22 | NUR ---
SPEECH PATHOLOGY Initial evaluation completed as per orders. Patient was admitted from home after suffering difficulty speaking and ambulating over past several days. Patient also endorses dysphagia. Medical history includes HTN, NIDDM, COPD, CO, s/p CABG, anxiety, thyroid. She was seen this am during breakfast meal. She was sitting upright in bedside chair feeding herself. Patient was engaged in conversation and was noted to display intact receptive and expressive skills. She was alert, oriented and able to provide history. Patient stated that at times she has been sounding "garbled" and having difficulty finding words. This was not noted during evaluation this morning. Patient's speech was fluent and intelligible with no word finding deficits. She displayed 100% consumption of breakfast meal with no overt difficulty with any food or liquid. Patient reported that foods such as breads or bagels stick sometimes. Patient was educated on compensatory swallowing strategies including small bites/sips, chewing thoroughly due to missing teeth and alternating liquid and solid. Compensatory speech strategies were also provided such as slow rate and overarticulation. Patient verbalized understanding of all information provided. Recommend follow up with patient on Saturday to ensure effectivenss of compensatory strategies, provide further recommendations as needed and determine need for any continued follow up. [facility] for further information. Thank you for this referral. BAUDILIO DELEON MSCCC-ORTHOPEDIC BRACE MAKER
[2020-02-12 16:00] VITALS: BP 173/51
--- NOTE | 2020-02-12 19:00 | NUR ---
ASSUMED CARE FOR THIS PT AT THIS TIME. NO C/O VOICED. PT DENIES DYSPHAGIA. AMBULATED TO BR W/STEADY GAIT. CALL LIGHT IN REACH.
[2020-02-12 20:00] VITALS: BP 153/52
--- NOTE | 2020-02-12 20:30 | NUR ---
CALL PLACED TO DR. MCLAUGHLIN ADVISED OF PATIENTS SKIN TEAR ADVISED TO CLEANSE WITH NORMAL SALINE AND LEAVE OPEN TO AIR, OKAY FOR PER POLICY WOOUND CARE ORDERS.
[2020-02-13] VITALS: BP 141/67
[2020-02-13 08:00] VITALS: BP 179/50
--- NOTE | 2020-02-13 09:44 | NUR ---
PT MEDICATED WITH PRN TYLENOL FOR C/O BACK PAIN. PT RATES PAIN 4/10. WILL MONITOR.
--- NOTE | 2020-02-13 10:30 | NUR ---
PRN TYLENOL SOMEWHAT EFFECTIVE PER PT.
--- NOTE | 2020-02-13 11:45 | NUR ---
Shift chart check completed.24 HR chart check completed.
[2020-02-13 12:00] VITALS: BP 161/44
--- NOTE | 2020-02-13 13:41 | NUR ---
ROUTINE SCHEDULED NEURONTIN AND TRAMADOL. PATIENT CLAIMS THIS IS FOR CHRONIC "BACK" DISCOMFORT.
--- NOTE | 2020-02-13 15:27 | NUR ---
DR MCLAUGHLIN HAS VISITED.
[2020-02-13 16:00] VITALS: BP 145/42
--- NOTE | 2020-02-13 17:07 | NUR ---
IV HAS BEEN REMOVED. DISCHARGE PHOTO DONE. PT IS DRESSED, LYING IN BED. SHE'S GOING TO EAT DINNER HERE AND HER FRIEND WILL CALL WHEN SHE'S ON THE WAY.
--- NOTE | 2020-02-13 18:35 | NUR ---
DISCHARGED IN STABLE CONDITION VIA W/C TO [facility] WHERE HER RIDE WAS WAITING.
== END 2020-02-13 18:35 | disposition home health service (06) | DRG 69 ==
LOC: ED 12:02 → EDHOLD 13:23 → 4E 13:23
PROVIDERS: Emergency Medicine; ADMIT Internal Medicine
DX: G45.9 Transient cerebral ischemic attack, unspecified (principal); I13.0 Hypertensive heart and chronic kidney disease with heart failure and stage 1 through stage 4 chronic kidney disease, or unspecified chronic kidney disease; I50.32 Chronic diastolic (congestive) heart failure; E03.9 Hypothyroidism, unspecified; J44.9 Chronic obstructive pulmonary disease, unspecified; R62.7 Adult failure to thrive; M47.9 Spondylosis, unspecified; R13.10 Dysphagia, unspecified; E66.01 Morbid (severe) obesity due to excess calories; N18.3 Chronic kidney disease, stage 3 (moderate); Z51.5 Encounter for palliative care; Z66 Do not resuscitate; K21.0 Gastro-esophageal reflux disease with esophagitis; M54.5 Low back pain; G89.29 Other chronic pain; Z88.1 Allergy status to other antibiotic agents; Z88.8 Allergy status to other drugs, medicaments and biological substances; Z82.49 Family history of ischemic heart disease and other diseases of the circulatory system; Z80.9 Family history of malignant neoplasm, unspecified; Z95.1 Presence of aortocoronary bypass graft; Z68.32 Body mass index [BMI] 32.0-32.9, adult

== ENCOUNTER 2020-05-12 07:55 | Inpatient (IN) | payer OTHER ==
[2020-05-12] VITALS (9 sets, daily range): BP systolic 170–212; BP diastolic 40–82
[~2020-05-12] VITALS: Ht 157.4 cm; Wt 87.8 kg
[~2020-05-12 07:55] MED LIST changes: +DULCOLAX STOOL100 MG PO; +LISINOPRIL40 MG PO; +POTASSIUM CHLO10 MEQ PO
[2020-05-12 08:31] LABS: BASO # 0.1 10*3/uL (0.0-0.1); BASO % 0.5 % (0.0-1.0); EOS # 0.1 10*3/uL (0.0-0.4); EOS % 1.1 % (1.0-4.0); LYMPH % 7.8 % (27.0-41.0); MEAN CELL VOLUME 92.3 fl (81.0-99.0); MEAN CORPUSCULAR HGB 28.2 pg (27.0-31.0); MEAN CORPUSCULAR HGB CONC 30.5 g/dl (33.0-37.0); MEAN PLATELET VOLUME 10.3 fl (9.6-12.3); MONO # 1.1 10*3/uL (0.1-1.0); MONO % 8.9 % (3.0-9.0); NEUT # 10.3 10*3/uL (2.3-7.9); NEUT % 81.2 % (47.0-73.0); PLATELET COUNT AUTOMATED 280 10*3/uL (130-400); RED BLOOD COUNT 4.01 10*6/uL (4.10-5.10); RED CELL DISTRI WIDTH 16.3 % (0-14.5); WHITE BLOOD COUNT 12.7 10*3/uL (4.8-10.8)
[2020-05-12 08:42] LABS: ACT PARTIAL THROMBO TIME 23.4 SECONDS (20.0-32.1)
[2020-05-12 08:48] LABS: ALBUMIN 3.3 gm/dl (3.1-4.5); CREATININE 1.65 mg/dL (0.55-1.02); POTASSIUM 4.5 mmol/L (3.5-5.1); TOTAL PROTEIN 6.8 gm/dL (6.4-8.2); TROPONIN I 0.021 ng/ml (<0.045)
--- NOTE | 2020-05-12 09:00 | NUR ---
A 80 YEAR OLD FEMALE PATIENT, admitted to [facility], under the services of AILYN Hallman MD with a diagnosis of COMPLETE HEART BLOCK, HYPERTENSIVE EMERGENCY. Chief complaint is INCREASING SHORTNESS OF BREATH OVER THE LAST WEEK, CHEST PAIN/PRESSURE/DISCOMFORT SINCE 5AM THIS MORNING. INTERMITTENT DIZZINESS. Patient arrived via CART WITH 2 RNS from ER. Monitor applied. Initial assessment completed. Vital signs taken and recorded. See assessment for past medical history, medications and allergies. Patient and/or family oriented to unit[facility]. Clothing/patient valuable form completed. JANET MELGOZA
--- NOTE | 2020-05-12 09:15 | NUR ---
DR DOMÍNGUEZ IN TO SEE PATIENT
[2020-05-12] MEDS ORDERED: Amaryl2 MG PO (09:55)
--- NOTE | 2020-05-12 10:35 | NUR ---
SPOKE WITH KRISTI BOLDEN AND UPDATED HER ON PLAN OF CARE PER PATIENT REQUEST, HER PHONE NUMBER IS [phone]. SHE WAS ASLO PROVIDED THE [place] PER REQUEST. ALL QUESTIONS ANSWERED AT THIS TIME, AND CALL BACK NUMBER WAS PROVIDED
--- NOTE | 2020-05-12 11:31 | NUR ---
ATTEMPTED TO CALL DR ACOSTA TO MAKE SURE THAT HE IS AWARE OF THE CONSULT. NO ANSWER, WILL RETRY
--- NOTE | 2020-05-12 12:35 | NUR ---
PATIENT RESTING WITH EYES CLOSED. APPEARS TO BE SLEEPING. RESTING HEARTRATE REMAINS IN 30'S, CURRENTLY 36 ON BURN CENTER NURSE. NO SIGNS OR SYMPTOMS OF DISTRESS. DEFIB PADS REMAIN ON PATIENT FOR IN THE EVENT THAT SHE WOULD NEED TO BE EXTERNALLY PACED. WITHIN SIGHT OF THIS RN. RN WILL CONTINUE TO MONITOR
--- NOTE | 2020-05-12 12:45 | NUR ---
SPOKE WITH PERLITA IN THE ER, STATES DR HARO MADE DR ACOSTA AWARE OF THE CONSULT.
--- NOTE | 2020-05-12 13:02 | NUR ---
AGAIN TRIED TO CALL DR ACOSTA. NO ANSWER
--- NOTE | 2020-05-12 13:15 | NUR ---
SPOKE WITH DR ACOSTA, STATES HE IS TOO BUSY TO DO PROCEDURE TODAY AND THAT IT WILL BE TOMORROW AROUND 4PM AND TO LET THE REP KNOW TOO.
--- NOTE | 2020-05-12 17:43 | NUR ---
FAMILY CALLED AND MADE AWARE THAT PROCEDURE IS SCHEDULED AROUND 4PM TOMORROW.
--- NOTE | 2020-05-12 18:14 | NUR ---
PATIENT MEDICATED WITH TYLENOL PER DRS ORDERS FOR COMPLAINTS OF HEADACHE. WHEN PROVIDED THE TYLENOL. PATIENT STATES "IT WONT WORK1" RN WILL MONITOR FOR EFFECTIVENESS
--- NOTE | 2020-05-12 20:16 | NUR ---
PATIENT TEARFUL WHEN GETTING UP TO BSC RREQUIRES ALOT OF ASSISTANCE TO STAND AND PIVOT FROM BED TO BSC.PATIENT BACK IN BED AND IS EATING A BOX CURRENTLY.
[2020-05-13] VITALS (12 sets, daily range): BP systolic 154–238; BP diastolic 40–87
--- NOTE | 2020-05-13 00:17 | NUR ---
PATIENT GIVEN HYDRALZINE FOR BP OF 225/50 AFTER LISINOPRIL NOT EFFECTIVE.
--- NOTE | 2020-05-13 08:30 | NUR ---
DR. DOMÍNGUEZ HERE TO SEE PATIENT. NEW ORDERS RECEIVED. MOANS IN PAIN. COMPLAINS OF SORENESS ALL OVER. BP 198/[address] DOMÍNGUEZ.
--- NOTE | 2020-05-13 09:00 | NUR ---
Senior Financial Accountant in to talk to patient. Patient states lives at home alone with her nephew and his checking in on her. There are 0 steps in the home. Physician: Dr. Navin Ashford Pharmacy: [facility] Home health services: would like [facility] on discharge Patient's level of ADLs: MINIMAL ASSIST Patient has working utilities: yes DME: rollator Follow-up physician's appointment after d/c: she prefers to make her own follow up appt after discharge Does patient want to access PORTAL?: no Discharge plan discussed with patient. She is sitting up in her bedside chair. She lives at home alone with her nephew and his checking in on her. She states she is independent in her ADLs and ambulates with a rollator. Discussed short term rehab and she refuses. Discussed home health care services and she is agreeable. When provided with a list of agencies she chose [facility]. She states Dr. Ashford wanted her to have [facility] as she has had them in the past but she states "the girls are nice but that is not my cup of tea." When medically stable she will be discharged to home with [facility] services. She states either Brooke or Conor will provide transportation on discharge. MONICA GRANADOS
--- NOTE | 2020-05-13 09:45 | NUR ---
medicated with norco for complaints of pain in shoulders, lower back, and all over pain. Rates pain a 8 on a pain scale of 1-10
--- NOTE | 2020-05-13 10:30 | NUR ---
VOICES THAT PAIN MED WAS EFFECTIVE FOR PAIN
--- NOTE | 2020-05-13 12:25 | NUR ---
Faxed home health referral along with face to face and clinical to [facility].
--- NOTE | 2020-05-13 15:00 | NUR ---
TAKEN TO OR VIA BED FOR PACEMAKER
[2020-05-14] VITALS: BP 159/44
[2020-05-14 04:00] VITALS: BP 177/64
[2020-05-14 06:37] VITALS: BP 197/65
--- NOTE | 2020-05-14 06:42 | NUR ---
PATIENT GIVEN HYDRALIZINE FOR HIGH BP 197/65. WILL RECHECK.
--- NOTE | 2020-05-14 09:10 | NUR ---
MEDICATED WITH CLONIDINE 0.1MG PO ORDERED FOR BP 212/72
[2020-05-14 12:00] VITALS: BP 161/44
--- NOTE | 2020-05-14 12:00 | NUR ---
BP 161/44
--- NOTE | 2020-05-14 13:46 | NUR ---
MEDICATED WITH NORCO FOR COMPLAINTS OF PAIN IN LOWER BACK. RATES PAIN A 7 ON A PAIN SCALE OF 1-10
--- NOTE | 2020-05-14 14:30 | NUR ---
VOICES THAT NORCO WAS EFFECTIVE FOR PAIN
--- NOTE | 2020-05-14 15:48 | NUR ---
MEDICATED WITH CLONIDINE ORDERED FOR BP 195/54
[2020-05-14 16:00] VITALS: BP 195/54
[2020-05-14 20:00] VITALS: BP 188/65
[2020-05-15] VITALS (7 sets, daily range): BP systolic 163–204; BP diastolic 42–73
--- NOTE | 2020-05-15 06:51 | NUR ---
PATIENT HAS SLEPT VERY WELL WITH LESS MOANING THROUGH OUT THE NIGHT. PATIENT STATES THAT HER TAYLOR IS NOT HURTING LIKE IT WAS. PATIENT WAS BATHED AND DENIES ANY NEEDS AT THIS TIME.
--- NOTE | 2020-05-15 09:16 | NUR ---
Awake and alert. No c/o pacer site ecchymotic well approximated.
--- NOTE | 2020-05-15 11:56 | NUR ---
Assisted to BSC and then to chair. Lunch ordered.
--- NOTE | 2020-05-15 12:57 | NUR ---
Medicated for hypertension. Dr. Martinez in to misadaljit.
--- NOTE | 2020-05-15 14:12 | NUR ---
Dr. Ashford in to visit.
--- NOTE | 2020-05-15 17:43 | NUR ---
Medicated for c/o back pain scale 9/10. States [place] usually works to knock it down to about 5/10.
--- NOTE | 2020-05-15 20:24 | NUR ---
PT. RESTING IN BED. HEP LOCK x2 ASYMPT IN LA. LUNGS DIMINISHED BILAT, PULSE OX 95% ON RA. ABDOMEN SOFT, NONDISTENDED AND NORMO. NO PERIPHERAL EDEMA NOTED. RESP. EASY AND REG NO DISTRESS. PT. GIVEN HYDRALAZINE AT 1953 FOR B/P OF 183/. JANI LAROSE RN
--- NOTE | 2020-05-15 21:29 | NUR ---
PT'S REPEAT B/P 164/44, HYDRALAZINE MODERATELY EFFECTIVE. NIGHT TIME MEDS GIVEN ORDERED.
[2020-05-16] VITALS: BP 178/58
--- NOTE | 2020-05-16 03:44 | NUR ---
CATAPRESS GIVEN NOW FOR B/P OF . WILL CONTINUE TO MONITOR. JANI LAROSE RN
[2020-05-16 04:00] VITALS: BP 184/86
--- NOTE | 2020-05-16 05:56 | NUR ---
PT. TRANSFERRED TO 4E. TELEMETRY PACK ON PATIENT. ALL BELONGINGS SENT WITH PT. VS STABLE. PT. REMAINS 100% PACED. REPORT TO BE GIVEN TO DAYLIGHT SHIFT. JANI LAROSE RN
--- NOTE | 2020-05-16 07:30 | NUR ---
PT RESTING IN BED. RESPS EASY AND NON LABORED. NO S/S OF DISTRESS NOTED. VSS-BP HIGH-DR AWARE.WHITE BOARD UPDATED. POC DISCUSSED W PT. A/O X3. DENIES CHEST PAIN/PRESSURE. PACER INSERTION SITE WNL. WILL CONTINUE TO MONITOR. CALL LIGHT WITHIN REACH.
[2020-05-16 08:00] VITALS: BP 185/60
--- NOTE | 2020-05-16 08:00 | NUR ---
PT NOTED TO NOT HAVE SLING ON L ARM R/T PACEMAKER INSERTION, APPLIED AT THIS TIME.
--- NOTE | 2020-05-16 09:00 | NUR ---
CM in to see patient. Discussed short term rehab and she refuses. Discussed home health care services and she remains agreeable. When medically stable she will be discharged to home with [facility] services.
--- NOTE | 2020-05-16 09:30 | NUR ---
PHYSICAL THERAPY Physical Therapy evaluation completed on 4th floor with full evaluation to follow. Recommend physical therapy per plan of care and SNF upon discharge if pt to go home recommend 24 hr care/assist w full HH services pt still currently in sling of LUE s/p pacemaker very limited in ability to amb as uses RW at home as well as performing ADL's. Thank you for this referral. Lacy Weston PT
--- NOTE | 2020-05-16 09:30 | NUR ---
Occupational Therapy evaluation completed this date on 4 with full eval to follow. Precautions include fall risk,new pacer implanted, LUE sling use s/p pacer, unsteady in standing, moderate complexity level [id number]. Recommend OT per POC and SNF to enable return home at independent level. Thank you. Danelle Landry OTR/l
--- NOTE | 2020-05-16 09:43 | NUR ---
PT GIVEN PRN APRESOLINE FOR BP 185/60. WILL CONTINUE TO MONITOR. PT REMAINS ASYMPTOMATIC. CALL LIGHT WITHIN REACH.
--- NOTE | 2020-05-16 09:51 | NUR ---
PT GIVEN EDUCATION MATERIALS REGARDING POST PACEMAKER INSERTION PER HER REQUEST. QUESTIONS ANSWERED.
[2020-05-16 12:00] VITALS: BP 174/61
--- NOTE | 2020-05-16 13:41 | NUR ---
BP NOW 174/61 PT GIVEN PRN CATAPRES
--- NOTE | 2020-05-16 15:34 | NUR ---
Patient resting quietly with no c/o discomfort. Respirations easy and regular. Vital signs stable. No overt distress. HISSOM,KATE
[2020-05-16 16:00] VITALS: BP 168/56
--- NOTE | 2020-05-16 17:23 | NUR ---
RESPIRATORY CALLED PER PT REQUEST FOR BREATHING [place]
--- NOTE | 2020-05-16 19:30 | NUR ---
PATIENT REFUSED ARM SLING TO LUE. STATES WAS IN TO SEE AND TOLD HER HE DID NOT WANT HER USING IT AND TOOK SLING OFF PATIENT HIMSELF.
[2020-05-16 20:00] VITALS: BP 175/61; BP 190/74
--- NOTE | 2020-05-16 20:48 | NUR ---
PATIENT MEDICATED WITH PRN CATAPRESS PER ORDERS FOR MANUAL BP OF 190/74. WILL CONTINUE TO MONITOR
--- NOTE | 2020-05-16 20:48 | NUR ---
PATIENT MEDICATED WITH NORCO IN COMBINATION OF SCHEDULED TRAMODOL FOR C/O BACK PAIN 04/30. WILL CONTINUE TO MONITOR
[2020-05-17] VITALS: BP 166/60
--- NOTE | 2020-05-17 | NUR ---
BLOOD PRESSURE NOTABLEY BETTER 166/60. PER PRNS ORDERS, NOTHING NEEDS TO BE GIVEN UNLESS SBP IS >170. WILL CONTINUE TO MONITOR
[2020-05-17 06:34] LABS: BASO % 0.7 % (0.0-1.0); EOS # 0.3 10*3/uL (0.0-0.4); HEMATOCRIT 31.4 % (37.0-47.0); LYMPH # 1.1 10*3/uL (1.3-4.4); LYMPH % 24.4 % (27.0-41.0); MEAN CELL VOLUME 92.4 fl (81.0-99.0); MEAN CORPUSCULAR HGB 28.2 pg (27.0-31.0); MEAN CORPUSCULAR HGB CONC 30.6 g/dl (33.0-37.0); MEAN PLATELET VOLUME 9.7 fl (9.6-12.3); MONO # 0.6 10*3/uL (0.1-1.0); MONO % 13.9 % (3.0-9.0); NEUT # 2.4 10*3/uL (2.3-7.9); NEUT % 54.8 % (47.0-73.0); PLATELET COUNT AUTOMATED 290 10*3/uL (130-400); RED CELL DISTRI WIDTH 15.8 % (0-14.5); WHITE BLOOD COUNT 4.3 10*3/uL (4.8-10.8)
[2020-05-17 06:39] LABS: CREATININE 1.16 mg/dL (0.55-1.02); POTASSIUM 4.2 mmol/L (3.5-5.1)
--- NOTE | 2020-05-17 07:30 | NUR ---
PHYSICAL THERAPY Patient seen this am 1;1 for therapy visit and was supine in bed upon therapist arrival. Patient identified by name / and joined by OT personal banking assistant for observation this session. Patient transfers supine to sit EOB with MIN A, needing a minute or so to collect herself, then sit to stand CGA with no AD. Patient ambulated 15'x 1, LOGISTICS RESEARCH ENGINEER/CGA, demonstrating very slow, cautious gait pattern. Patient returned to bedside chair with mild fatigue and following brief seated rest break, completed SPT to BSC with LOGISTICS RESEARCH ENGINEER/CGA. Patient returned to bedside chair reporting 8/10 upper back back around [place] area which she states has been a chronic issue. Patient remained in bedside chair with call light, tray table, and telephone. Will continue per POC as tolerated, total treatment time 14 minutes. Kaylan Raymond, DIRECTOR DATABASE
--- NOTE | 2020-05-17 07:41 | NUR ---
OT NOTE Pt was seen this A.M. 1:1 for 25 minute OT session. Upon arrival pt was supine in bed. Pt identified by name and and had complaints of 8/10 upper back pain. Pt was able to verbalize and self recall pacemaker precautions. Pt transferred supine to sit EOB with Ed for assist with upper body. While sitting EOB pt donned B socks with SBA while using compensatory technique of bringing her leg up to knee level. Sit to stand completed from bed level with CGA hand held. Challenged pt's static standing tolerance needed for increased I in self care tasks and functional transfers. Pt was able to tolerate aprox 4 minutes before sitting due to fatigue. Functional mobility was then completed from the EOB to the bedside commode with CGA hand held. There she transferred on/off bedside commode with CGA for safety. Functional mobility was then completed to the recliner with CGA hand held. There she was left with call light in hand, tray table in place, and phone in reach. Continue with rec D/C plan to SNF. HERO Lea
--- NOTE | 2020-05-17 08:50 | NUR ---
CM in to see patient. She is sitting up in her bedside chair eating breakfast. Discussed patient being discharged to home today and she states she is not ready. "Dr. Segovia tried to push me out the door yesterday but I was still shaky and weak. I can tell a difference between yesterday and today. I want to be discharged tomorrow with home health care services and I already have [facility] three days a week for 4 hours each day." [address] Dr[address] Segovia. Plan is to discharge patient to home tomorrow with [facility] services.
[2020-05-17 12:00] VITALS: BP 162/53
[2020-05-17 16:00] VITALS: BP 174/52; BP 179/50
--- NOTE | 2020-05-17 17:31 | NUR ---
PT BP 174/52, MANUALLY. CATAPRES 0.1 MG GIVEN PER MAR.
[2020-05-17 20:00] VITALS: BP 172/60
[2020-05-17 21:20] VITALS: BP 172/60
--- NOTE | 2020-05-17 21:22 | NUR ---
PATIENT MEDICATED WITH APRESOLINE FOR BLOOD PRESSURE OF 172/60. PATIENT WAS NOT AVAILBEL FOR CATAPRESS AT THIS TIME. WILL CONTINUE TO MONITOR
--- NOTE | 2020-05-17 21:22 | NUR ---
PATIENT MEDICATED WITH NORCO FOR C/O BACK PAIN 03/31. WILL CONTINUE TO MONITOR
--- NOTE | 2020-05-17 22:22 | NUR ---
CHIGNIK LAGOON EFFECTIVE
[2020-05-17 23:13] VITALS: BP 163/46
--- NOTE | 2020-05-18 | NUR ---
BLOOD PRESSURE NOTED TO BE BETTER AT 163/46. APRESOLINE EFFECTIVE
--- NOTE | 2020-05-18 07:40 | NUR ---
PHYSICAL THERAPY Patient seen this am 1;1 for therapy visit and was relaxing supine in bed upon therapist arrival. Patient identified by name / and joined by OT commercial assistant for observation this session. Patient reports no c/o's pain since receiving recent pain meds this morning and transfers supine to sit EOB, CGA x 1. Patient completed sit to stand SBA and ambulates with use of wh walker, SBA, 25'x 2 to bathroom, demonstrating slow, cautious gait pattern. Patient returned to bedside chair awaiting breakfast with no LOB noted this treatment. Patient remained in chair with call light, tray table and telephone. Will continue per POC as tolerated, total treatment time 16 minutes. Kalyan Raymond, CLERK OPERATOR
--- NOTE | 2020-05-18 07:45 | NUR ---
OT NOTE Pt was seen this A.M. 1:1 for 15 minute OT session. Upon arrival pt was supine in bed. Pt identified by name and and had no complaints at this time. Pt transferred supine to sit EOB with CGA. Pt was able to recall her pacemaker precautions with 100% carry over. While sitting EOB pt donned B slippers with SBA. Sit to stand completed from bed level with SBA and use of w/w for UE support. Functional mobility was then completed to the bathroom with SBA and use of w/w. There she transferred on/off standard commode with CGA and use of grab bar for UE support. Functional mobility completed back to the recliner with SBA and use of w/w. Pt was left sitting upright in the recliner with call light in hand, tray table in place, and phone in reach. Continue with rec D/C plan to SNF. PAULIE Lea/Bong
[2020-05-18 08:00] VITALS: BP 182/57
--- NOTE | 2020-05-18 09:00 | NUR ---
CM in to see patient. No new needs or request at this time. Discussed home health care services and she remains agreeable to [facility]. She will resume her [facility] also. When medically stable she will be discharged to home.
[2020-05-18 12:00] VITALS: BP 135/41
[2020-05-18] MEDS ORDERED: CARVEDILOL25 MG PO (14:45)
[2020-05-18] MEDS ORDERED: HYDRALAZINE HYD50 MG PO (14:45)
[2020-05-18] MEDS ORDERED: Ipratropium Brom3 ML INH (14:45)
[2020-05-18] MEDS ORDERED: 'CLONIDINE0.1 MG PO (14:47)
--- NOTE | 2020-05-18 15:31 | NUR ---
Faxed discharge instructions and summary to [facility]
[2020-05-18 16:00] VITALS: BP 169/55
--- NOTE | 2020-05-18 17:35 | NUR ---
Discharge instructions reviewed with patient/family. Patient receptive and verbalizes understanding. Follow-up care arranged. Written instructions given to patient/family. KEI PRADHAN
--- NOTE | 2020-05-19 08:08 | NUR ---
PHYSICAL THERAPY CO-SIGN I approve of the Physical Therapy notes written above. Lacy Weston PT
--- NOTE | 2020-05-19 08:08 | NUR ---
OCCUPATIONAL THERAPY CO-SIGN I approve of the Occupational Therapy notes written above. RONALD SHEEHAN OTR/Bong
== END 2020-05-18 17:35 | disposition home health service (06) | DRG 242 ==
LOC: ED 07:55 → ICCU 08:38 → EDHOLD 08:38 → 4E 08:38 → ICCU 08:46 → 4E 05-16 06:00
PROVIDERS: Emergency Medicine; ADMIT Internal Medicine; ATTEND Internal Medicine
PROC: 0JH606Z Insertion of Pacemaker, Dual Chamber into Chest Subcutaneous Tissue and Fascia, Open Approach (ICD-10-PCS; principal; 2020-05-13)
PROC: 02H63JZ Insertion of Pacemaker Lead into Right Atrium, Percutaneous Approach (ICD-10-PCS; principal; 2020-05-13)
PROC: 02HK3JZ Insertion of Pacemaker Lead into Right Ventricle, Percutaneous Approach (ICD-10-PCS; principal; 2020-05-13)
DX: I44.2 Atrioventricular block, complete (principal); N17.0 Acute kidney failure with tubular necrosis; I13.0 Hypertensive heart and chronic kidney disease with heart failure and stage 1 through stage 4 chronic kidney disease, or unspecified chronic kidney disease; I50.32 Chronic diastolic (congestive) heart failure; I16.1 Hypertensive emergency; I49.5 Sick sinus syndrome; N18.30 Chronic kidney disease, stage 3 unspecified; R62.7 Adult failure to thrive; G89.29 Other chronic pain; K21.00 Gastro-esophageal reflux disease with esophagitis, without bleeding; M54.9 Dorsalgia, unspecified; E11.22 Type 2 diabetes mellitus with diabetic chronic kidney disease; E66.01 Morbid (severe) obesity due to excess calories; E03.9 Hypothyroidism, unspecified; M79.10 Myalgia, unspecified site; J43.2 Centrilobular emphysema; Z88.1 Allergy status to other antibiotic agents; Z88.8 Allergy status to other drugs, medicaments and biological substances; Z68.35 Body mass index [BMI] 35.0-35.9, adult

== ENCOUNTER → 2021-10-26 | Outpatient (CLI) | payer OTHER ==
[~2021-10-26] MED LIST changes: +'CLONIDINE0.1 MG PO; +Amaryl2 MG PO; +CARVEDILOL25 MG PO; +HYDRALAZINE HYD50 MG PO; +Ipratropium Brom3 ML INH
== END | disposition home or self-care (01) ==
LOC: CARD 12:00
PROVIDERS: ATTEND Internal Medicine Cardiovascular Disease
DX: I36.1 Nonrheumatic tricuspid (valve) insufficiency (principal)

== ENCOUNTER 2022-02-08 10:14 | Inpatient (IN) | payer OTHER ==
[~2022-02-08] VITALS: Ht 157.5 cm; Wt 81.2 kg
[2022-02-08 10:19] VITALS: BP 108/41
[2022-02-08 11:13] LABS: BASO # 0.1 10*3/uL (0.0-0.1); BASO % 0.6 % (0.0-1.0); EOS # 0.2 10*3/uL (0.0-0.4); EOS % 2.3 % (1.0-4.0); HEMATOCRIT 36.9 % (37.0-47.0); LYMPH % 12.3 % (27.0-41.0); MEAN CORPUSCULAR HGB 32.8 pg (27.0-31.0); MEAN CORPUSCULAR HGB CONC 32.8 g/dl (33.0-37.0); MEAN PLATELET VOLUME 10.3 fl (9.6-12.3); MONO # 1.1 10*3/uL (0.1-1.0); MONO % 14.6 % (3.0-9.0); NEUT # 5.4 10*3/uL (2.3-7.9); NEUT % 69.4 % (47.0-73.0); PLATELET COUNT AUTOMATED 213 10*3/uL (130-400); RED BLOOD COUNT 3.69 10*6/uL (4.10-5.10); RED CELL DISTRI WIDTH 12.8 % (0-14.5); WHITE BLOOD COUNT 7.8 10*3/uL (4.8-10.8)
[2022-02-08 11:25] LABS: ACT PARTIAL THROMBO TIME 20.8 SECONDS (20.0-32.1)
[2022-02-08 11:29] LABS: CREATININE 2.61 mg/dL (0.55-1.02); POTASSIUM 3.2 mmol/L (3.5-5.1); TOTAL PROTEIN 6.6 gm/dL (6.4-8.2)
[2022-02-08 11:50] VITALS: BP 120/46
[2022-02-08 14:15] VITALS: BP 105/44; BP 128/49
[2022-02-08] MEDS ORDERED: CELECOXIB200 M1 PO (15:00)
[2022-02-08] MEDS ORDERED: METOCLOPRAMIDE H5 M2 PO (15:00)
[2022-02-08] MEDS ORDERED: ATORVASTATIN CA40 M1 PO (15:02)
[2022-02-08] MEDS ORDERED: BUSPIRONE HCL10 MG PO (15:02)
[2022-02-08 20:00] VITALS: BP 136/51
[2022-02-09] VITALS: BP 130/45
[2022-02-09 05:09] LABS: BILIRUBIN Negative (Negative); BLOOD Negative (Negative); CLARITY Clear (Clear); COLOR Yellow (Yellow); GLUCOSE Negative (Negative); KETONE Negative (Negative); LEUKO ESTERASE Negative (Negative); NITRITE Negative (Negative); PH 6.5 (4.5-8.0); UROBILINOGEN 0.2 E.U./dl (0.0-1.0)
[2022-02-09 05:28] LABS: RBC 0-2 rbc/hpf (0-2); WBC 0-2 wbc/hpf (0-5)
[2022-02-09 05:53] LABS: URINE CREATININE RANDOM 64.4 mg/dL
[2022-02-09 06:00] LABS: CREATININE 1.95 mg/dL (0.55-1.02); POTASSIUM 3.2 mmol/L (3.5-5.1); TOTAL PROTEIN 6.5 gm/dL (6.4-8.2)
[2022-02-09 06:12] LABS: BASO # 0.1 10*3/uL (0.0-0.1); BASO % 0.8 % (0.0-1.0); EOS # 0.2 10*3/uL (0.0-0.4); EOS % 3.2 % (1.0-4.0); HEMATOCRIT 38.1 % (37.0-47.0); LYMPH # 1.1 10*3/uL (1.3-4.4); LYMPH % 15.4 % (27.0-41.0); MEAN CELL VOLUME 102.7 fl (81.0-99.0); MEAN CORPUSCULAR HGB 33.4 pg (27.0-31.0); MEAN CORPUSCULAR HGB CONC 32.5 g/dl (33.0-37.0); MEAN PLATELET VOLUME 10.8 fl (9.6-12.3); MONO # 1.1 10*3/uL (0.1-1.0); NEUT # 4.6 10*3/uL (2.3-7.9); PLATELET COUNT AUTOMATED 214 10*3/uL (130-400); RED BLOOD COUNT 3.71 10*6/uL (4.10-5.10); RED CELL DISTRI WIDTH 12.8 % (0-14.5); WHITE BLOOD COUNT 7.1 10*3/uL (4.8-10.8)
[2022-02-09 08:00] VITALS: BP 150/54
[2022-02-09 12:00] VITALS: BP 153/59
[2022-02-09 15:26] VITALS: BP 147/46
[2022-02-09 20:00] VITALS: BP 173/55
[2022-02-10] VITALS: BP 153/62
[2022-02-10 06:14] LABS: BASO # 0.1 10*3/uL (0.0-0.1); BASO % 0.7 % (0.0-1.0); EOS # 0.2 10*3/uL (0.0-0.4); EOS % 3.2 % (1.0-4.0); LYMPH % 13.9 % (27.0-41.0); MEAN CELL VOLUME 101.6 fl (81.0-99.0); MEAN CORPUSCULAR HGB 32.8 pg (27.0-31.0); MEAN CORPUSCULAR HGB CONC 32.3 g/dl (33.0-37.0); MEAN PLATELET VOLUME 10.6 fl (9.6-12.3); MONO # 0.9 10*3/uL (0.1-1.0); NEUT # 4.7 10*3/uL (2.3-7.9); NEUT % 68.5 % (47.0-73.0); PLATELET COUNT AUTOMATED 212 10*3/uL (130-400); RED BLOOD COUNT 3.84 10*6/uL (4.10-5.10); RED CELL DISTRI WIDTH 12.6 % (0-14.5); WHITE BLOOD COUNT 6.9 10*3/uL (4.8-10.8)
[2022-02-10 06:22] LABS: CREATININE 1.36 mg/dL (0.55-1.02); POTASSIUM 3.8 mmol/L (3.5-5.1)
[2022-02-10 06:24] LABS: TOTAL PROTEIN 6.6 gm/dL (6.4-8.2)
[2022-02-10 08:00] VITALS: BP 150/59
[2022-02-10 12:00] VITALS: BP 150/54
[2022-02-10 16:00] VITALS: BP 161/52
[2022-02-10 20:00] VITALS: BP 172/54
[2022-02-11] VITALS: BP 148/58
[2022-02-11 05:46] LABS: CREATININE 1.32 mg/dL (0.55-1.02); POTASSIUM 4.4 mmol/L (3.5-5.1); TOTAL PROTEIN 6.9 gm/dL (6.4-8.2)
[2022-02-11 05:59] LABS: BASO # 0.1 10*3/uL (0.0-0.1); BASO % 0.8 % (0.0-1.0); EOS # 0.3 10*3/uL (0.0-0.4); EOS % 3.4 % (1.0-4.0); HEMATOCRIT 42.2 % (37.0-47.0); LYMPH % 11.5 % (27.0-41.0); MEAN CELL VOLUME 104.5 fl (81.0-99.0); MEAN CORPUSCULAR HGB 33.2 pg (27.0-31.0); MEAN CORPUSCULAR HGB CONC 31.8 g/dl (33.0-37.0); MEAN PLATELET VOLUME 10.3 fl (9.6-12.3); NEUT % 71.3 % (47.0-73.0); PLATELET COUNT AUTOMATED 243 10*3/uL (130-400); RED BLOOD COUNT 4.04 10*6/uL (4.10-5.10); RED CELL DISTRI WIDTH 12.4 % (0-14.5); WHITE BLOOD COUNT 8.4 10*3/uL (4.8-10.8)
[2022-02-11 08:00] VITALS: BP 169/57
[2022-02-11 12:00] VITALS: BP 171/55
[2022-02-11] MEDS ORDERED: BUMETANIDE1 MG PO (12:00)
[2022-02-11 13:24] VITALS: BP 124/47
== END 2022-02-11 14:00 | disposition home or self-care (01) | DRG 683 ==
LOC: ED 10:14 → 5E 12:22 → EDHOLD 12:22 → 5E 13:34
PROVIDERS: Emergency Medicine; Internal Medicine Nephrology; ADMIT Internal Medicine; ATTEND Internal Medicine
DX: N17.0 Acute kidney failure with tubular necrosis (principal); I50.22 Chronic systolic (congestive) heart failure; M62.82 Rhabdomyolysis; I13.0 Hypertensive heart and chronic kidney disease with heart failure and stage 1 through stage 4 chronic kidney disease, or unspecified chronic kidney disease; E87.6 Hypokalemia; N18.30 Chronic kidney disease, stage 3 unspecified; E83.52 Hypercalcemia; D64.9 Anemia, unspecified; E11.42 Type 2 diabetes mellitus with diabetic polyneuropathy; E66.9 Obesity, unspecified; E03.9 Hypothyroidism, unspecified; E78.2 Mixed hyperlipidemia; S81.802A Unspecified open wound, left lower leg, initial encounter; T50.2X5A Adverse effect of carbonic-anhydrase inhibitors, benzothiadiazides and other diuretics, initial encounter; E11.22 Type 2 diabetes mellitus with diabetic chronic kidney disease; E11.43 Type 2 diabetes mellitus with diabetic autonomic (poly)neuropathy; K31.84 Gastroparesis; S81.801A Unspecified open wound, right lower leg, initial encounter; E11.65 Type 2 diabetes mellitus with hyperglycemia; X58.XXXA Exposure to other specified factors, initial encounter; Z88.1 Allergy status to other antibiotic agents; Z88.8 Allergy status to other drugs, medicaments and biological substances; Z90.49 Acquired absence of other specified parts of digestive tract; Z90.710 Acquired absence of both cervix and uterus; Y92.89 Other specified places as the place of occurrence of the external cause; Y93.89 Activity, other specified; Y99.8 Other external cause status; Z68.32 Body mass index [BMI] 32.0-32.9, adult

== ENCOUNTER 2022-02-13 05:17 | Inpatient (IN) | payer OTHER ==
[~2022-02-13] VITALS: Ht 152.4 cm; Wt 77.3 kg
[~2022-02-13 05:17] MED LIST changes: +ATORVASTATIN CA40 M1 PO; +BUMETANIDE1 MG PO; +BUSPIRONE HCL10 MG PO; +CELECOXIB200 M1 PO; +METOCLOPRAMIDE H5 M2 PO
[2022-02-13 05:19] VITALS: BP 195/83
[2022-02-13 06:01] LABS: BASO # 0.1 10*3/uL (0.0-0.1); BASO % 0.6 % (0.0-1.0); EOS % 0.1 % (1.0-4.0); HEMATOCRIT 42.3 % (37.0-47.0); LYMPH # 0.7 10*3/uL (1.3-4.4); LYMPH % 5.9 % (27.0-41.0); MEAN CELL VOLUME 101.9 fl (81.0-99.0); MEAN CORPUSCULAR HGB 33.3 pg (27.0-31.0); MEAN CORPUSCULAR HGB CONC 32.6 g/dl (33.0-37.0); MEAN PLATELET VOLUME 10.2 fl (9.6-12.3); MONO # 1.3 10*3/uL (0.1-1.0); NEUT # 10.1 10*3/uL (2.3-7.9); NEUT % 81.2 % (47.0-73.0); NUCLEATED RED BLOOD CELL 0.2 % (0.0-0.0); PLATELET COUNT AUTOMATED 248 10*3/uL (130-400); RED BLOOD COUNT 4.15 10*6/uL (4.10-5.10); RED CELL DISTRI WIDTH 12.2 % (0-14.5); WHITE BLOOD COUNT 12.5 10*3/uL (4.8-10.8)
[2022-02-13 06:04] LABS: CREATININE 1.39 mg/dL (0.55-1.02); POTASSIUM 4.3 mmol/L (3.5-5.1); TOTAL PROTEIN 6.9 gm/dL (6.4-8.2)
[2022-02-13 06:56] LABS: ACT PARTIAL THROMBO TIME 21.1 SECONDS (20.0-32.1); INTERNATIONAL NORM RATIO 1.1 (2.0-3.5)
[2022-02-13 07:35] LABS: ABG BASE EXCESS 1.4 mmol/L (-2.0-2.0); ARTERIAL BLOOD GAS PH 7.417 (7.35-7.45); ARTERIAL BLOOD GAS PO2 97.8 (80-90)
[2022-02-13 07:39] VITALS: BP 194/91
[2022-02-13 08:56] LABS: BILIRUBIN Negative (Negative); BLOOD 1+ (Negative); CLARITY Clear (Clear); COLOR Yellow (Yellow); GLUCOSE 3+ (Negative); KETONE 1+ (Negative); LEUKO ESTERASE Negative (Negative); NITRITE Negative (Negative); PH 6.5 (4.5-8.0); SPECIFIC GRAVITY 1.015 (1.001-1.030)
[2022-02-13 09:11] LABS: MUCOUS TRACE
[2022-02-13 10:20] VITALS: BP 185/78
[2022-02-13 12:00] VITALS: BP 199/76
[2022-02-13 13:03] LABS: BASO % 0.4 % (0.0-1.0); HEMATOCRIT 41.3 % (37.0-47.0); LYMPH # 0.8 10*3/uL (1.3-4.4); LYMPH % 7.5 % (27.0-41.0); MEAN CELL VOLUME 99.5 fl (81.0-99.0); MEAN CORPUSCULAR HGB 32.5 pg (27.0-31.0); MEAN CORPUSCULAR HGB CONC 32.7 g/dl (33.0-37.0); MEAN PLATELET VOLUME 10.2 fl (9.6-12.3); MONO # 1.3 10*3/uL (0.1-1.0); MONO % 12.2 % (3.0-9.0); NEUT # 8.1 10*3/uL (2.3-7.9); NEUT % 79.1 % (47.0-73.0); NUCLEATED RED BLOOD CELL 0.2 % (0.0-0.0); PLATELET COUNT AUTOMATED 217 10*3/uL (130-400); RED BLOOD COUNT 4.15 10*6/uL (4.10-5.10); RED CELL DISTRI WIDTH 12.1 % (0-14.5); WHITE BLOOD COUNT 10.3 10*3/uL (4.8-10.8)
[2022-02-13 16:00] VITALS: BP 182/90
[2022-02-13 20:00] VITALS: BP 159/62
[2022-02-14] VITALS: BP 110/46
== END 2022-02-14 07:00 | disposition other institution (70) | DRG 281 ==
LOC: ED 05:17 → EDHOLD 07:27 → 4E 07:27
PROVIDERS: Emergency Medicine; Internal Medicine Cardiovascular Disease; ADMIT Internal Medicine; ATTEND Internal Medicine
DX: I21.4 Non-ST elevation (NSTEMI) myocardial infarction (principal); N17.9 Acute kidney failure, unspecified; I44.2 Atrioventricular block, complete; I16.1 Hypertensive emergency; I50.20 Unspecified systolic (congestive) heart failure; I13.0 Hypertensive heart and chronic kidney disease with heart failure and stage 1 through stage 4 chronic kidney disease, or unspecified chronic kidney disease; E03.9 Hypothyroidism, unspecified; F41.1 Generalized anxiety disorder; E78.2 Mixed hyperlipidemia; Z66 Do not resuscitate; E11.22 Type 2 diabetes mellitus with diabetic chronic kidney disease; S81.801A Unspecified open wound, right lower leg, initial encounter; S81.802A Unspecified open wound, left lower leg, initial encounter; L89.322 Pressure ulcer of left buttock, stage 2; G89.29 Other chronic pain; X58.XXXA Exposure to other specified factors, initial encounter; M54.9 Dorsalgia, unspecified; S51.012A Laceration without foreign body of left elbow, initial encounter; N18.30 Chronic kidney disease, stage 3 unspecified; Z95.0 Presence of cardiac pacemaker; Z88.1 Allergy status to other antibiotic agents; Z88.8 Allergy status to other drugs, medicaments and biological substances; Z90.49 Acquired absence of other specified parts of digestive tract; Z90.710 Acquired absence of both cervix and uterus; Y93.89 Activity, other specified; Y92.89 Other specified places as the place of occurrence of the external cause; Y99.8 Other external cause status; Z95.1 Presence of aortocoronary bypass graft; Z68.29 Body mass index [BMI] 29.0-29.9, adult

== ENCOUNTER 2022-02-20 10:27 | Inpatient (IN) | payer OTHER ==
[~2022-02-20] VITALS: Ht 157.4 cm; Wt 75.7 kg
[2022-02-20 10:32] VITALS: BP 174/73
[2022-02-20 10:50] LABS: BASO % 0.5 % (0.0-1.0); EOS # 0.2 10*3/uL (0.0-0.4); EOS % 2.3 % (1.0-4.0); HEMATOCRIT 41.4 % (37.0-47.0); LYMPH # 0.7 10*3/uL (1.3-4.4); LYMPH % 9.3 % (27.0-41.0); MEAN CELL VOLUME 98.3 fl (81.0-99.0); MEAN CORPUSCULAR HGB 33.3 pg (27.0-31.0); MEAN CORPUSCULAR HGB CONC 33.8 g/dl (33.0-37.0); MEAN PLATELET VOLUME 9.7 fl (9.6-12.3); MONO # 1.5 10*3/uL (0.1-1.0); MONO % 19.2 % (3.0-9.0); NEUT # 5.3 10*3/uL (2.3-7.9); NEUT % 67.3 % (47.0-73.0); NUCLEATED RED BLOOD CELL 0.1 10*3/uL (0.0-0.0); NUCLEATED RED BLOOD CELL 0.6 % (0.0-0.0); PLATELET COUNT AUTOMATED 270 10*3/uL (130-400); RED BLOOD COUNT 4.21 10*6/uL (4.10-5.10); RED CELL DISTRI WIDTH 12.6 % (0-14.5); WHITE BLOOD COUNT 7.8 10*3/uL (4.8-10.8)
[2022-02-20 11:02] LABS: ACT PARTIAL THROMBO TIME 22.3 SECONDS (20.0-32.1)
[2022-02-20 11:06] LABS: ALKALINE PHOSPHATASE 62 U/L (45-117); BUN 22 mg/dl (7-24); CHLORIDE 102 mmol/L (98-107); CREATININE 0.95 mg/dL (0.55-1.02); LIPASE 465 U/L (73-393); POTASSIUM 3.4 mmol/L (3.5-5.1); SGOT/AST 51 IU/L (3-35); SGPT/ALT 38 U/L (12-78); SODIUM 139 mmol/L (136-145); TOTAL PROTEIN 6.5 gm/dL (6.4-8.2)
[2022-02-20 12:20] VITALS: BP 137/52
[2022-02-20 13:29] LABS: BILIRUBIN Negative (Negative); BLOOD Negative (Negative); CLARITY Cloudy (Clear); COLOR Yellow (Yellow); GLUCOSE Trace (Negative); KETONE Trace (Negative); LEUKO ESTERASE Negative (Negative); NITRITE Negative (Negative); PH 6.5 (4.5-8.0); SPECIFIC GRAVITY 1.015 (1.001-1.030)
[2022-02-20 13:58] LABS: BACTERIA 3+; EPITHELIAL CELLS 16-20
[2022-02-20 17:15] VITALS: BP 156/62
[2022-02-20 20:00] VITALS: BP 144/53
[2022-02-21] VITALS: BP 151/63
[2022-02-21 07:52] VITALS: BP 124/62
[2022-02-21 12:00] VITALS: BP 120/62
[2022-02-21 12:02] VITALS: BP 110/39
[2022-02-21 16:00] VITALS: BP 155/58
[2022-02-21 20:00] VITALS: BP 137/52
[2022-02-22] VITALS: BP 144/49
[2022-02-22 08:00] VITALS: BP 146/42
[2022-02-22 12:00] VITALS: BP 110/47
[2022-02-22] MEDS ORDERED: Lopressor25 MG PO (15:47)
[2022-02-22] MEDS ORDERED: AMLODIPINE BESYL5 MG PO (15:48)
[2022-02-22] MEDS ORDERED: IMDUR SA30 MG PO (15:48)
[2022-02-22] MEDS ORDERED: CLONIDINE0.2 MG PO (15:49)
[2022-02-22] MEDS ORDERED: TYLENOL EXTRA500 MG PO (15:50)
[2022-02-22] MEDS ORDERED: LASIX40 MG PO (15:50)
[2022-02-22] MEDS ORDERED: PROTONIX40 MG PO (15:51)
[2022-02-22] MEDS ORDERED: COREG12.5 M1 PO (15:52)
[2022-02-22 15:57] VITALS: BP 102/37
[2022-02-22 17:12] VITALS: BP 150/45
[2022-02-22 20:00] VITALS: BP 156/52
[2022-02-23] VITALS (7 sets, daily range): BP systolic 125–146; BP diastolic 42–57
[2022-02-23 06:07] LABS: BASO % 0.1 % (0.0-1.0); EOS % 0.1 % (1.0-4.0); HEMATOCRIT 34.5 % (37.0-47.0); LYMPH # 0.8 10*3/uL (1.3-4.4); LYMPH % 9.8 % (27.0-41.0); MEAN CELL VOLUME 101.2 fl (81.0-99.0); MEAN CORPUSCULAR HGB 32.8 pg (27.0-31.0); MEAN CORPUSCULAR HGB CONC 32.5 g/dl (33.0-37.0); MEAN PLATELET VOLUME 9.9 fl (9.6-12.3); MONO % 13.1 % (3.0-9.0); NEUT % 76.3 % (47.0-73.0); PLATELET COUNT AUTOMATED 258 10*3/uL (130-400); RED BLOOD COUNT 3.41 10*6/uL (4.10-5.10); RED CELL DISTRI WIDTH 12.7 % (0-14.5); WHITE BLOOD COUNT 7.9 10*3/uL (4.8-10.8)
[2022-02-23 06:13] LABS: CREATININE 1.24 mg/dL (0.55-1.02)
[2022-02-24] VITALS: BP 143/51
[2022-02-24 06:10] LABS: BASO % 0.1 % (0.0-1.0); HEMATOCRIT 35.4 % (37.0-47.0); LYMPH # 0.6 10*3/uL (1.3-4.4); LYMPH % 7.4 % (27.0-41.0); MEAN CELL VOLUME 100.3 fl (81.0-99.0); MEAN CORPUSCULAR HGB 33.1 pg (27.0-31.0); MEAN CORPUSCULAR HGB CONC 33.1 g/dl (33.0-37.0); MEAN PLATELET VOLUME 9.9 fl (9.6-12.3); MONO # 0.8 10*3/uL (0.1-1.0); MONO % 9.7 % (3.0-9.0); NEUT % 81.4 % (47.0-73.0); PLATELET COUNT AUTOMATED 286 10*3/uL (130-400); RED BLOOD COUNT 3.53 10*6/uL (4.10-5.10); RED CELL DISTRI WIDTH 12.6 % (0-14.5); WHITE BLOOD COUNT 8.6 10*3/uL (4.8-10.8)
[2022-02-24 06:12] LABS: CREATININE 1.08 mg/dL (0.55-1.02); POTASSIUM 3.5 mmol/L (3.5-5.1); TOTAL PROTEIN 5.5 gm/dL (6.4-8.2)
[2022-02-24 08:00] VITALS: BP 167/52
[2022-02-24 12:00] VITALS: BP 142/52
[2022-02-24 16:00] VITALS: BP 165/59
[2022-02-24 20:00] VITALS: BP 139/42
[2022-02-25] VITALS: BP 144/44
[2022-02-25 08:00] VITALS: BP 140/78
[2022-02-25] MEDS ORDERED: GOOD SENSE ASP325 MG PO (08:47)
[2022-02-25] MEDS ORDERED: VENT7GM INH (08:47)
[2022-02-25] MEDS ORDERED: AMOX-CLAV 875-1 EACH PO (08:47)
== END 2022-02-25 12:36 | DRG 177 ==
LOC: ED 10:27 → 4E 15:41 → EDHOLD 15:41 → 4E 16:49
PROVIDERS: Emergency Medicine; ADMIT Internal Medicine; ATTEND Internal Medicine
PROC: XW033E5 Introduction of Remdesivir Anti-infective into Peripheral Vein, Percutaneous Approach, New Technology Group 5 (ICD-10-PCS; principal; 2022-02-20)
DX: U07.1 COVID-19 (principal); J96.01 Acute respiratory failure with hypoxia; N39.0 Urinary tract infection, site not specified; E44.1 Mild protein-calorie malnutrition; G89.29 Other chronic pain; M54.50 Low back pain, unspecified; M19.90 Unspecified osteoarthritis, unspecified site; E03.9 Hypothyroidism, unspecified; E78.2 Mixed hyperlipidemia; B96.89 Other specified bacterial agents as the cause of diseases classified elsewhere; R62.7 Adult failure to thrive; E87.6 Hypokalemia; I25.10 Atherosclerotic heart disease of native coronary artery without angina pectoris; B95.2 Enterococcus as the cause of diseases classified elsewhere; E11.43 Type 2 diabetes mellitus with diabetic autonomic (poly)neuropathy; K31.84 Gastroparesis; E11.42 Type 2 diabetes mellitus with diabetic polyneuropathy; M48.04 Spinal stenosis, thoracic region; Z88.1 Allergy status to other antibiotic agents; Z90.49 Acquired absence of other specified parts of digestive tract; Z88.8 Allergy status to other drugs, medicaments and biological substances; Z90.710 Acquired absence of both cervix and uterus; Z95.0 Presence of cardiac pacemaker; Z98.41 Cataract extraction status, right eye; I25.2 Old myocardial infarction; Z68.30 Body mass index [BMI] 30.0-30.9, adult

== ENCOUNTER 2022-03-06 15:35 | Emergency (ER) | payer OTHER ==
[~2022-03-06] VITALS: Ht 157.4 cm; Wt 77.6 kg
[~2022-03-06 15:35] MED LIST changes: +AMLODIPINE BESYL5 MG PO; +AMOX-CLAV 875-1 EACH PO; +CLONIDINE0.2 MG PO; +COREG12.5 M1 PO; +GOOD SENSE ASP325 MG PO; +IMDUR SA30 MG PO; +Lopressor25 MG PO; +VENT7GM INH
[2022-03-06 15:51] VITALS: BP 120/48
[2022-03-06 15:55] LABS: BASO % 0.4 % (0.0-1.0); EOS # 0.1 10*3/uL (0.0-0.4); EOS % 1.3 % (1.0-4.0); HEMATOCRIT 30.2 % (37.0-47.0); LYMPH # 0.8 10*3/uL (1.3-4.4); LYMPH % 6.9 % (27.0-41.0); MEAN CELL VOLUME 102.7 fl (81.0-99.0); MEAN CORPUSCULAR HGB CONC 32.1 g/dl (33.0-37.0); MEAN PLATELET VOLUME 9.9 fl (9.6-12.3); MONO # 0.9 10*3/uL (0.1-1.0); NEUT # 9.1 10*3/uL (2.3-7.9); NEUT % 82.6 % (47.0-73.0); PLATELET COUNT AUTOMATED 279 10*3/uL (130-400); RED BLOOD COUNT 2.94 10*6/uL (4.10-5.10); RED CELL DISTRI WIDTH 13.4 % (0-14.5); WHITE BLOOD COUNT 11.1 10*3/uL (4.8-10.8)
[2022-03-06 16:17] LABS: CREATININE 2.04 mg/dL (0.55-1.02); POTASSIUM 4.7 mmol/L (3.5-5.1); TOTAL PROTEIN 6.2 gm/dL (6.4-8.2)
[2022-03-06] MEDS ORDERED: PERCOCET 5-3251 EACH PO (18:06)
[2022-03-06 18:24] LABS: BILIRUBIN Negative (Negative); BLOOD Negative (Negative); CLARITY Cloudy (Clear); COLOR Yellow (Yellow); GLUCOSE Negative (Negative); KETONE Trace (Negative); LEUKO ESTERASE Trace (Negative); NITRITE Negative (Negative); UROBILINOGEN 0.2 E.U./dl (0.0-1.0)
[2022-03-06 19:44] LABS: BACTERIA 1+; YEAST 1+
[2022-03-08] MEDS ORDERED: GOOD SENSE ASP325 MG PO (13:09)
[2022-03-13] MEDS ORDERED: CEFUROXIME AXE250 MG PO (07:39)
== END 2022-03-06 18:14 | disposition home or self-care (01) ==
LOC: ED 15:35
PROVIDERS: Emergency Medicine
DX: R74.8 Abnormal levels of other serum enzymes (principal); R41.0 Disorientation, unspecified; M54.50 Low back pain, unspecified; Z88.1 Allergy status to other antibiotic agents; Z88.8 Allergy status to other drugs, medicaments and biological substances; Z79.899 Other long term (current) drug therapy; Z79.2 Long term (current) use of antibiotics; Z90.710 Acquired absence of both cervix and uterus; Z95.0 Presence of cardiac pacemaker

== ENCOUNTER 2022-03-22 13:24 | Emergency (ER) | payer OTHER ==
[~2022-03-22 13:24] MED LIST changes: +PERCOCET 5-3251 EACH PO
[2022-03-22 13:30] VITALS: BP 125/47
[2022-03-22 14:07] LABS: BILIRUBIN Negative (Negative); BLOOD Negative (Negative); CLARITY Clear (Clear); COLOR Yellow (Yellow); GLUCOSE Negative (Negative); KETONE Negative (Negative); LEUKO ESTERASE Negative (Negative); NITRITE Negative (Negative); UROBILINOGEN 0.2 E.U./dl (0.0-1.0)
[2022-03-22 14:13] LABS: BACTERIA 1+; EPITHELIAL CELLS 0-2
[2022-03-22 14:14] LABS: WBC 0-2 wbc/hpf (0-5)
[2022-03-22 14:54] LABS: MEAN CELL VOLUME 109.9 fl (81.0-99.0); MEAN CORPUSCULAR HGB 32.6 pg (27.0-31.0); MEAN CORPUSCULAR HGB CONC 29.7 g/dl (33.0-37.0); MEAN PLATELET VOLUME 9.5 fl (9.6-12.3); PLATELET COUNT AUTOMATED 282 10*3/uL (130-400); RED BLOOD COUNT 2.82 10*6/uL (4.10-5.10); RED CELL DISTRI WIDTH 15.1 % (0-14.5); WHITE BLOOD COUNT 3.8 10*3/uL (4.8-10.8)
[2022-03-22 15:04] LABS: MANUAL DIFF REFLEX YES
[2022-03-22 15:10] LABS: CREATININE 1.31 mg/dL (0.55-1.02); POTASSIUM 4.2 mmol/L (3.5-5.1); TOTAL PROTEIN 5.7 gm/dL (6.4-8.2)
[2022-03-22 15:13] LABS: ACT PARTIAL THROMBO TIME 20.2 SECONDS (20.0-32.1)
[2022-03-22 15:16] LABS: TOTAL CELLS COUNTED 100 #CELLS
[2022-03-22 15:17] LABS: PLATELET SUFFICIENCY NORMAL (NORMAL); POLYCHROMASIA SLIGHT
== END 2022-03-22 16:54 ==
LOC: ED 13:24
PROVIDERS: Emergency Medicine
DX: G93.40 Encephalopathy, unspecified (principal); R09.02 Hypoxemia; I21.4 Non-ST elevation (NSTEMI) myocardial infarction; I25.10 Atherosclerotic heart disease of native coronary artery without angina pectoris; J44.9 Chronic obstructive pulmonary disease, unspecified; E11.22 Type 2 diabetes mellitus with diabetic chronic kidney disease; I13.0 Hypertensive heart and chronic kidney disease with heart failure and stage 1 through stage 4 chronic kidney disease, or unspecified chronic kidney disease; N18.30 Chronic kidney disease, stage 3 unspecified; I50.9 Heart failure, unspecified; I25.2 Old myocardial infarction; Z88.1 Allergy status to other antibiotic agents; Z88.8 Allergy status to other drugs, medicaments and biological substances; Z79.899 Other long term (current) drug therapy; Z79.2 Long term (current) use of antibiotics; Z90.49 Acquired absence of other specified parts of digestive tract; Z90.710 Acquired absence of both cervix and uterus; Z95.0 Presence of cardiac pacemaker